=== PATIENT | male | born 1935 | race Caucasian/White ===

== ENCOUNTER → 2016-07-08 | Outpatient (CLI) | payer MEDICARE, OTHER ==
[~2016-07-08] MED LIST: AMLO10TA PO; AMLO10TA2 PO; ASP81TEC PO; ASPI-983 PO; ASPI325T32 PO; ASPRIN; ATOR80TA2 PO; ATOR80TA76 PO; AZIT500T PO; AZIT500T2 PO; BUME1TAB4 PO; CEFD300C PO; CLOP75TA PO; CRESTOR40 MG PO; DIPY25TA; FISH1CAP7 PO; FLC1T PO; FOLI0.4T2 PO; FURO40TA4 PO; GLIP5TAB13 PO; IRBE300T9 PO; ISM60TCR PO; ISORBIDE; LOSA50TA36 PO; LOSA50TA6 PO; METO-333 PO; METO100T2 PO; METO25TA2 PO; NF-NI250ER PO; NITR0.4T PO; NITR0.4T SL; OMEG-59 PO; OMEG1CAP24 PO; PHEN-633 PO; PHEN100C11 PO; PHEN100C4 PO; PHN100C; PHN100C PO
--- NOTE | 2016-07-08 16:24 | Diagnostic Imaging Report ---
PROCEDURE: MRI right joint lower extremity without contrast. TECHNIQUE: Multiplanar, multisequence non contrast-enhanced MRI of the right lower extremity was accomplished. INDICATION: Medial knee pain. There are no previous MRI examinations available for comparison. FINDINGS: The plain film examination of the right knee performed on 11/22/15 failed to show any sign of an acute abnormality. There was degenerative disease involving the medial compartment and the patellofemoral space. On the proton dense sagittal series of this exam, there is a sizable defect involving the midportion of the medial meniscus. Most likely, the medial meniscus has been torn and has partially degenerated. Only a small amount of the anterior and posterior horns of the medial meniscus is still remaining. The injury to the medial meniscus has lead to advanced degenerative disease involving the medial compartment of the knee joint. Specifically, there is erosion and irregularity of the articular cartilage of the medial femoral condyle and to a lesser extent of the articular surface of the medial aspect of the proximal tibia. Furthermore on the coronal T2 series, there is diffusely increased signal throughout the medial femoral condyle and the medial aspect of the proximal tibia. This abnormal signal does suggest bone edema and may be related to repetitive trauma. However, there is also a suggestion of a nondisplaced fracture extending obliquely from the articular surface of the medial aspect of the proximal tibia to the medial cortex. The medial collateral ligament is also somewhat indistinct and most likely partially torn. There is no abnormal signal arising from the medial meniscus is suggested articular surface tear. There is some increased signal within the substance of the anterior and posterior horns of the lateral meniscus. This may be related to mucoid degeneration or less likely an intrasubstance tear. The anterior and posterior cruciate ligaments, the quadriceps and infrapatellar tendons, the fibular collateral ligament, the biceps femoris tendon and the iliotibial band are intact. There is no sign of a tear of either the medial or lateral retinaculum. 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 There is a moderate joint effusion present. There may be a few small loose bodies within the joint fluid as well. There is also a sizable 2.9 x 5.8 cm Shannon's cyst. IMPRESSION: 1. The medial meniscus has been torn and has partially degenerated. The injury to the medial meniscus has led to advanced degenerative disease involving the medial compartment of the knee joint. In addition, there may be a nondisplaced fracture of the medial aspect of the proximal tibia. The indistinct appearance of the medial collateral ligament also suggests that the MCL is partially torn. 2. The lateral meniscus and the other major ligaments and tendons are intact. 3. 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 4. There is a small joint effusion and a sizable Shannon's cyst. Dictated by: Dictated on workstation # [id number]
== END ==
LOC: RAD 14:58
PROVIDERS: ATTEND Orthopaedic Surgery
DX: M23.8X1 Other internal derangements of right knee (principal); M25.461 Effusion, right knee; M71.21 Synovial cyst of popliteal space [Baker], right knee; M17.12 Unilateral primary osteoarthritis, left knee
CPT/HCPCS: 73721

== ENCOUNTER 2016-10-08 11:28 | Outpatient (RCR) | payer MEDICARE, OTHER | END 2016-10-08 13:58 | disposition home or self-care (01) | PROVIDERS: ATTEND Orthopaedic Surgery | DX: M17.11 Unilateral primary osteoarthritis, right knee (principal) ==

== ENCOUNTER 2016-10-28 04:46 | Inpatient (IN) | payer MEDICARE, OTHER ==
[2016-10-28] VITALS (18 sets, daily range): BP systolic 106–170; BP diastolic 44–95
[~2016-10-28] VITALS: Ht 182.9 cm; Wt 92.1 kg
[2016-10-28] MEDS ORDERED: LORazepam INJ 2 MG/ML (ATIVAN) VIAL ONE (04:56)
[2016-10-28] MEDS ORDERED: PHENYTOIN 250 MG/5 ML INJ (DILANTIN) VIAL IV ONE (05:00)
[2016-10-28] MEDS ORDERED: LORazepam INJ 2 MG/ML (ATIVAN) VIAL IVP ONE ×2 (05:00→05:45)
[2016-10-28 05:09] LABS: BASOPHILS # (AUTO) 0.1 10^3/uL (0.0-0.1); BASOPHILS % (AUTO) 1 % (0-10); EOSINOPHILS # (AUTO) 0.1 10^3/uL (0.0-0.3); EOSINOPHILS % (AUTO) 1 % (0-10); LYMPHOCYTES # (AUTO) 1.8 X 10^3 (1.0-4.0); LYMPHOCYTES % (AUTO) 13 % (12-44); MEAN CORPUSCULAR HEMOGLOBIN 30 PG (25-34); MEAN CORPUSCULAR HGB CONC 32 G/DL (32-36); MEAN CORPUSCULAR VOLUME 93 FL (80-99); MEAN PLATELET VOLUME 10.9 FL (7.4-10.4); MONOCYTES # (AUTO) 0.8 X 10^3 (0.0-1.0); MONOCYTES % (AUTO) 6 % (0-12); NEUTROPHILS # (AUTO) 11.2 X 10^3 (1.8-7.8); NEUTROPHILS % (AUTO) 80 % (42-75); PLATELET COUNT 171 10^3/uL (130-400); RED BLOOD COUNT 4.24 10^6/uL (4.35-5.85); RED CELL DISTRIBUTION WIDTH 13.8 % (10.0-14.5)
[2016-10-28 05:10] LABS: WHITE BLOOD COUNT 13.9 10^3/uL (4.3-11.0)
[2016-10-28 05:20] LABS: PROTHROMBIN TIME PATIENT 13.6 SEC (12.2-14.7)
[2016-10-28 05:31] LABS: ALANINE AMINOTRANSFERASE 24 U/L (0-55); ALBUMIN 4.1 GM/DL (3.2-4.5); ALCOHOL < 10 MG/DL (<10); ANION GAP 19 MMOL/L (5-14); ASPARTATE AMINO TRANSFERASE 22 U/L (5-34); BILIRUBIN,TOTAL 0.6 MG/DL (0.1-1.0); BLOOD UREA NITROGEN 21 MG/DL (7-18); BUN/CREATININE RATIO 16; CALCIUM 9.3 MG/DL (8.5-10.1); CARBON DIOXIDE 15 MMOL/L (21-32); CHLORIDE 103 MMOL/L (98-107); CREATINE KINASE 63 U/L (30-200); CREATININE SERUM 1.32 MG/DL (0.60-1.30); GFR ESTIMATED 52; GLUCOSE 242 MG/DL (70-105); POTASSIUM 4.5 MMOL/L (3.6-5.0); SODIUM 137 MMOL/L (135-145); TOTAL PROTEIN 7.4 GM/DL (6.4-8.2)
--- NOTE | 2016-10-28 05:43 | ED Neurological Problem ---
General Chief Complaint: Neurological Problems Stated Complaint: SEIZURES Source: EMS, spouse History of Present Illness Time seen by provider: 04:50 Initial Comments PT ARRIVES VIA EMS FROM HOME PT HAS HAD 2 SEIZURES TONIGHT, EACH LASTING 14 MINUTES, PER FIRST SEIZURE WAS IN HIS SLEEP, AND CALLED EMS. PT WAS VERY UNCOOPERATIVE AND REFUSED TRANSPORT AND JUMPED OFF EMS CART. PT WAS ACTING NORMAL AFTER THAT, ACCORDING TO APPROXIMATELY 30-40 MINUTES LATER, HE HAD A SECOND SEIZURE. SO CALLED EMS AGAIN AND EMS BROUGHT PT HERE, HE IS STILL POST-ICTAL AND ESSENTIALLY UNRESPONSIVE. NO IV ACCESS ATTEMPTED BY EMS. BOTH SEIZURES OCCURRED WHILE PATIENT WAS LAYING IN BED AND NO INJURIES OCCURRED. REPORTS THAT PT ALWAYS ADAMANTLY REFUSES TO COME TO HOSPITAL, AND STATES HE WILL BE VERY UPSET/ANGRY ONCE HE WAKES UP AND DISCOVERS HE IS HERE. PT HAD A SEIZURE 11 YEARS AGO, AND AT THE TIME WAS FOUND TO HAVE CAD AND SUBSEQUENTLY HAD 5 VESSEL CABG WAS FELT THAT SEIZURE WAS BROUGHT ON BY CARDIAC PROBLEMS, BUT WAS KEPT ON DILANTIN SINCE THAT TIME HE WAS SEEN BY A NEUROLOGIST AT IN [place] ( HAS NOT SEEN NEUROLOGIST IN 11 YEARS--SAW NEUROLOGIST VERY BRIEFLY AFTER HIS FIRST SEIZURE, AND THEN HAD NOT SEEN ONE AGAIN UNTIL [place], AND WAS ONLY 1 VISIT) , AND HE THOUGHT DILANTIN COULD BE STOPPED PT HAD NOT HAD ANY FURTHER SEIZURES. ADDITIONALLY, PT WAS STARTED ON TRAMADOL 3 MONTHS AGO FOR CHRONIC RIGHT KNEE PAIN, AND WAS TOLD THAT IT MAY CAUSE SEIZURES. PCP: DR. LAWLER AIRCRAFT TOOL MAKER: DR. HAIR Allergies and Home Medications Allergies Coded Allergies: Penicillins (Unverified Allergy, Unknown, 12/25/14) Home Medications Amlodipine Besylate 10 Mg Tablet, 10 MG PO DAILY, (Reported) Aspirin 325 Mg Tablet., 325 MG PO DAILY, (Reported) Atorvastatin Calcium 80 Mg Tablet, 80 MG PO HS, (Reported) Bumetanide 1 Mg Tablet, 2 MG PO BIDAC, #90 Ref 11 Prescribed by: JAVIER TAYLOR on 05/11/15 0952 Glipizide 5 Mg Tablet, 5 MG PO DAILY, (Reported) Isosorbide Mononitrate 60 Mg Tab, 60 MG PO DAILY, (Reported) Losartan Potassium 50 Mg Tablet, 50 MG PO DAILY @ 1200, (Reported) Metoprolol Tartrate 100 Mg Tablet, 100 MG PO BID, (Reported) Nitroglycerin 0.4 Mg Tab.subl, 0.4 MG SL UD PRN for CHEST PAIN, (Reported) Constitutional: other (UNABLE TO OBTAIN FROM PT. DENIES ANY RECENT ILLNESS. ) Past Dwaiufl-Xtlgdo-Pqrxte Hx Patient Social History Alcohol Use: Occasionally Uses (HISTORY OF VERY HEAVY USE IN 30'S AND 40'S, NOW ONLY "OCCASIONAL" USE) Recreational Drug Use: No Smoking Status: Former Smoker (QUIT AGE 28) Recent Foreign Travel: No Contact w/Someone Who Travel: No Recent Hopitalizations: Yes (200, DIVERTICULITIS ABOUT 20 YEARS AGO) Physical Abuse: No Sexual Abuse: No Mistreated: No Fear: No Immunizations Up To Date Tetanus Booster (TDap): More than 5yrs PED Vaccines UTD: Yes Date of Pneumonia Vaccine: Apr 28, 2014 Date of Influenza Vaccine: Oct 24, 2014 Seasonal Allergies Seasonal Allergies: No Surgeries History of Surgeries: Yes (5 vessel CABG, short term dialysis; TRANSVENOUS MITRAL VALVE REPLACEMENT) Surgeries: Cardiac, CABG, Dialysis, Valve Replacement Respiratory History of Respiratory Disorde: Yes (CHF) Currently Using CPAP: No Currently Using BIPAP: No Cardiovascular History of Cardiac Disorders: Yes (MURMUR, bypass x5, blockages without intervention, CHF; TRANSVENOUS MITRAL VALVE REPLACEMENT) Cardiac Disorders: Chronic Edema/Swelling, Coronary Artery Disease, High Cholesterol, Hypertension, Valvular Heart Disease Neurological History of Neurological Disord: Yes (SEIZURE IN 2006 PRIOR TO CABG) Neurological Disorders: Seizure Disorder, Stroke, TIA Reproductive System Hx Reproductive Disorders: No Sexually Transmitted Disease: No HIV/AIDS: No Genitourinary History of Genitourinary Disor: Yes (SHORT TERM DIALYSIS) Genitourinary Disorders: Renal Failure, Dialysis Gastrointestinal History of Gastrointestinal Di: Yes Gastrointestinal Disorders: Hemorrhoids, Polyps Musculoskeletal History of Musculoskeletal Dis: Yes (CHRONIC RIGHT KNEE PAIN ) Musculoskeletal Disorders: Arthritis Endocrine History of Endocrine Disorders: Yes Endocrine Disorders: Diabetes, Non-Insulin dep HEENT History of HEENT Disorders: Yes HEENT Disorders: Cataract Loss of Vision: Denies Hearing Impairment: Hard of Hearing Cancer History of Cancer: No Psychosocial History of Psychiatric Problem: No Suicide Risk Score: 0 Integumentary History of Skin or Integumenta: No Blood Transfusions History of Blood Disorders: No Adverse Reaction to a Blood Tr: No Family Medical History Significant Family History: No Pertinent Family Hx Family Medial History: Cardiovascular disease 19 MOTHER Cervical cancer Diabetes mellitus 19 FATHER Physical Exam Vital Signs Vital Sign - Last 12Hours 10/28/16 10/28/16 04:46 04:50 Temp 98.7 Pulse 77 Resp 16 B/P (MAP) 168/59 Pulse Ox 92 O2 Delivery Room Air O2 Flow Rate 2.00 Capillary Refill : General Appearance: other (PT IS POST ICTAL, UNRESPONSIVE WITH SNOROUS BREATHING. DOES BECOME SOMEWHAT AGITATED AT TIMES, BUT DOES NOT OPEN EYES, VERBALIZE OR FOLLOW ANY COMMANDS, BUT DOES WITHDRAW FROM PAIN ) HEENT: other (PUPILS EQUAL) Respiratory: No rales, No rhonchi, No wheezing, other (SNOROUS BREATHING) Cardiovascular: regular rate, rhythm, no edema, no JVD, systolic murmur (04/28) Gastrointestinal: soft Neurologic/Psychiatric: other (UNRESPONSIVE WITH SNOROUS BREATHING BUT DOES WITHDRAW FROM PAIN) Skin: normal color, warm/dry Progress/Results/Core Measures Results/Orders Lab Results Laboratory Tests Test 10/28/16 04:55 Range/Units White Blood Count 13.9 H 4.3-11.0 10^3/uL Red Blood Count 4.24 L 4.35-5.85 10^6/uL Hemoglobin 12.6 L 13.3-17.7 G/DL Hematocrit 39 L 40-54 % Mean Corpuscular Volume 93 80-99 FL Mean Corpuscular Hemoglobin 30 25-34 PG Mean Corpuscular Hemoglobin Concent 32 32-36 G/DL Red Cell Distribution Width 13.8 10.0-14.5 % Platelet Count 171 130-400 10^3/uL Mean Platelet Volume 10.9 H 7.4-10.4 FL Neutrophils (%) (Auto) 80 H 42-75 % Lymphocytes (%) (Auto) 13 12-44 % Monocytes (%) (Auto) 6 0-12 % Eosinophils (%) (Auto) 1 0-10 % Basophils (%) (Auto) 1 0-10 % Neutrophils # (Auto) 11.2 H 1.8-7.8 X 10^3 Lymphocytes # (Auto) 1.8 1.0-4.0 X 10^3 Monocytes # (Auto) 0.8 0.0-1.0 X 10^3 Eosinophils # (Auto) 0.1 0.0-0.3 10^3/uL Basophils # (Auto) 0.1 0.0-0.1 10^3/uL Prothrombin Time 13.6 12.2-14.7 SEC INR Comment 1.0 0.8-1.4 Activated Partial Thromboplast Time 34 24-35 SEC Sodium Level 137 135-145 MMOL/L Potassium Level 4.5 3.6-5.0 MMOL/L Chloride Level 103 98-107 MMOL/L Carbon Dioxide Level 15 L 21-32 MMOL/L Anion Gap 19 H 5-14 MMOL/L Blood Urea Nitrogen 21 H 7-18 MG/DL Creatinine 1.32 H 0.60-1.30 MG/DL Estimat Glomerular Filtration Rate 52 BUN/Creatinine Ratio 16 Glucose Level 242 H 70-105 MG/DL Calcium Level 9.3 8.5-10.1 MG/DL Magnesium Level 2.0 1.8-2.4 MG/DL Total Bilirubin 0.6 0.1-1.0 MG/DL Aspartate Amino Transf (AST/SGOT) 22 5-34 U/L Alanine Aminotransferase (ALT/SGPT) 24 0-55 U/L Alkaline Phosphatase 83 40-136 U/L Total Creatine Kinase 63 30-200 U/L Creatine Kinase MB 2.3 <6.6 NG/ML Troponin I < 0.30 <0.30 NG/ML Total Protein 7.4 6.4-8.2 GM/DL Albumin 4.1 3.2-4.5 GM/DL TSH Walker Testing 2.08 0.35-4.94 UIU/ML Serum Alcohol < 10 <10 MG/DL My Orders Orders - ALISHA JIMÉNEZ DO Lorazepam Injection (Ativan Injection) (10/28/16 05:00) Phenytoin Injection (Dilantin Injection) (10/28/16 05:00) Saline Lock/Iv-Start (10/28/16 04:58) Ekg Tracing (10/28/16 04:58) O2 (10/28/16 04:58) Monitor-Rhythm Ecg Trace Only (10/28/16 04:58) Alcohol (10/28/16 04:58) Cbc With Automated Diff (10/28/16 04:58) Comprehensive Metabolic Panel (10/28/16 04:58) Creatine Kinase (10/28/16 04:58) Creatine Kinase Mb (10/28/16 04:58) Magnesium (10/28/16 04:58) Protime With Inr (10/28/16 04:58) Partial Thromboplastin Time (10/28/16 04:58) Thyroid Analyzer (10/28/16 04:58) Troponin I (10/28/16 04:58) Chest 1 View, Ap/Pa Only (10/28/16 04:58) Lorazepam Injection (Ativan Injection) (10/28/16 04:56) Lorazepam Injection (Ativan Injection) (10/28/16 05:45) Ct Head Wo-R/O Stroke (10/28/16 05:59) Medications Given in ED Current Medications Medications Dose Ordered Sig/Chano Route Start Time Stop Time Status Last Admin Dose Admin Lorazepam 2 mg ONCE ONCE IVP 10/28/16 05:00 10/28/16 05:03 DC 10/28/16 05:05 2 MG Lorazepam 2 mg ONCE ONCE IVP 10/28/16 05:45 10/28/16 05:46 DC 10/28/16 05:36 2 MG Phenytoin Sodium 1,000 mg ONCE ONCE IV 10/28/16 05:00 10/28/16 05:03 DC 10/28/16 05:20 1,000 MG Vital Signs/I&O Vital Sign - Last 12Hours 10/28/16 10/28/16 04:46 04:50 Temp 98.7 Pulse 77 Resp 16 B/P (MAP) 168/59 Pulse Ox 92 92 O2 Delivery Room Air Nasal Cannula O2 Flow Rate 2.00 Progress Note : Progress Note PT SOMEWHAT AGITATED ON ARRIVAL, GIVEN ATIVAN AND DILANTIN BOLUS ON ARRIVAL VITALS STABLE AND O2 SATS IN MID TO UPPER 90'S ON ROOM AIR NO DETERIORATION IN PT'S CONDITION, BUT REMAINED UNRESPONSIVE FOR REMAINDER OF ER STAY ECG Initial ECG Impression Time: 04:57 Initial ECG Rate: 72 Initial ECG Rhythm: Normal Sinus Initial ECG Impression: Normal Diagnostic Imaging Comments CXR--NO ACUTE PROCESS, POOR INSPIRATION--PENDING RADIOLOGIST REVIEW CT HEAD--NO ACUTE PROCESS, PER [facility] RADIOLOGIST VIA PHONE AT 0627 Reviewed: Reviewed by Me, Discussed w/Radiologist Departure Communication (Admissions) Progress Notes 626--SPOKE WITH DR. LAWLER, ACCEPTS PT FOR ADMIT. Impression Impression: Primary Impression: MULTIPLE SEIZURES Additional Impressions: Hx of seizure disorder PROLONGED POST ICTAL STATE NIDDM Chronic renal insufficiency HX OF CAD WITH CABG Hx of mitral valve replacement Disposition: ADMITTED INPATIENT Condition: Stable/Unchanged Admissions Decision to Admit Reason: Admit from ER (General) Decision to Admit/Date: Oct 28, 2016 Time/Decision to Admit Time: 06:30 Departure-Patient Inst. Referrals: DALIA LAWLER DO (PCP) Primary Care Physician ALISHA JIMÉNEZ DO Oct 28, 2016 05:43
[2016-10-28 05:51] LABS: TROPONIN I < 0.30 NG/ML (<0.30)
--- NOTE | 2016-10-28 06:39 | Diagnostic Imaging Report ---
INDICATION: Vertigo with left upper extremity and facial paresthesia Comparison is made to study dated 07/24/2009. Multiple contiguous axial CT images of the head are obtained. Ventricles and sulci are prominent. There is no evidence of hemorrhage. No territorial low density is seen. There is mild atherosclerotic calcification within distal internal carotid and vertebral arteries. There is no abnormal mass effect or shift of midline structures. IMPRESSION: Probable senescent findings in the brain without CT evidence of acute intracranial abnormality or adverse change. Dictated by: Dictated on workstation # [id number]
--- OUTSIDE RECORDS SUMMARY | 2016-10-28 06:48 | XMS REPORT | Encounter Summary ---
Author Author [facility] Organization [facility] Address Unknown Phone Unavailable Care Team Providers Care Story Reader Name Role Phone PCP Unavailable Reason for Visit * Reason Comments Referral waiting for ortho OV Encounter Details Date Type Department Care Team Description 10/07/2016 Telephone [facility] Cardiology Lydia Alexandre, machine tracer (waiting for [address] [place] ortho OV) [facility] [address] [place] [address] Social History Tobacco Use Types Packs/Day Years Used Date Former Smoker Cigarettes Quit: 02/23/1961 Alcohol Use Drinks/Week oz/Week Comments No 0 Standard 0.0 drinks or equivalent Sex Assigned at Date Recorded Not on file as of this encounter Functional Status Functional Status Response Date of Assessment Does the patient have a hearing impairment: Yes 06/28/2015 as of this encounter Plan of Treatment Not on fileas of this encounter Visit Diagnoses Not on filein this encounter
--- OUTSIDE RECORDS SUMMARY | 2016-10-28 06:48 | XMS REPORT | Encounter Summary ---
Author Author [facility] Organization [facility] Address Unknown Phone Unavailable Care Team Providers Care Insurance Inspector Name Role Phone PCP Unavailable Encounter Details Date Type Department Care Team Description 09/29/2016 Ancillary Rad Outpatient, Radiologist Diagnosis unknown Orders [address] [place] [address] Social History Tobacco Use Types Packs/Day Years [...] Treatment Not on fileas of this encounter Results * MRI LOWER EXT EXTERNAL IMAGING (07/08/2016) Narrative This order has been auto finalized and does not contain a result. in this encounter Visit Diagnoses Diagnosis Diagnosis unknown Other unknown and unspecified cause of morbidity or mortality in this encounter
--- OUTSIDE RECORDS SUMMARY | 2016-10-28 06:48 | XMS REPORT | Clinical Summary ---
Author Author [facility] Organization [facility] Address Unknown Phone Unavailable Care Team Providers Care Watch Supervisor Name Role Phone PCP Unavailable Source Comments Some departments are not documenting in the electronic medical record. If you do not see the information that you expected, contact Release of Information in the Health Information Management department at [phone] for further assistance in locating additional records.[facility] Allergies Active Allergy Reactions Severity Noted Date Comments Lisinopril COUGH Low 06/04/2015 Penicillins SEE COMMENTS Low 06/04/2015 Unsure of reaction Current Medications Prescription Sig. Disp. Refills Start End Date Status Date atorvastatin (LIPITOR) 40 Take 80 mg by mouth Active mg tablet daily. nitroglycerin (NITROSTAT) Place 0.4 mg under tongue Active 0.4 mg tablet every 5 minutes as needed for Chest Pain. glipiZIDE (GLUCOTROL) 5 Take 5 mg by mouth twice Active mg tablet daily with meals. losartan (COZAAR) 50 mg Take 50 mg by mouth Active tablet daily. phenytoin SR (DILANTIN) Take 400 mg by mouth at Active 100 mg capsule bedtime daily. senna/docusate Take 2 Tabs by mouth 06/20/19 Active (SENOKOT-S) 8.6/50 mg daily as needed. For 16 tablet constipation psyllium (METAMUCIL) 3.4 Take 1 Packet by mouth Active gram packet daily as needed. metoprolol (LOPRESSOR) 50 Take 1 Tab by mouth twice 180 Tab 3 Active mg tablet daily. 16 aspirin EC 81 mg tablet Take 81 mg by mouth Active daily. Active Problems Problem Noted Date Postoperative anemia due to acute blood loss 06/28/2015 Hypertensive emergency 06/20/2015 Flash pulmonary edema (HCC) 06/20/2015 Acute respiratory failure (HCC) 06/20/2015 Hx of aortic valve repair 06/04/2015 Overview: 09/29/2005-CABG x 5 and Aortic Valve Repair History of acute renal failure 06/04/2015 Overview: History of ARF requiring dialysis, improved. Seizure (HCC) 06/04/2015 Overview: Approximately 10 years ago-Currently on Dilantin. Aortic stenosis, severe 05/11/2015 Overview: 03/26/15-Echo ([facility]): EF 65%. Enlarged left atrium. Moderate concentric LVH. Moderate diastolic dysfunction. Moderate to severe aortic stenosis. Aortic Valve mean gradient is 41 mmHg. Moderate aortic insufficiency. Pleural effusion present. Severe pulmonary HTN. RSVP is 58 mmHg. Dyspnea on exertion Coronary artery disease Overview: 11/22/14-Cath ([facility]): EF 60%. Occlusion of three vein grafts to the second OMB, RPDA and MRCA. Patent vein graft to the first OMB giving collateral to the DRCA. Patent TRAYLOR to the LAD. Extensive [place] CAD. Moderate aortic valve stenosis with peak gradient of 60 mmHg. S/P CABG x 5 Overview: 09/29/2005-CABG x 5 and Aortic Valve Repair Chronic diastolic heart failure (HCC) Overview: Admitted to [facility] in [place] for CHF. BNP >3000. Type II diabetes mellitus (HCC) Chronic renal impairment, stage 2 (mild) Carotid artery stenosis Hypertension, essential Hyperlipidemia Paroxysmal a-fib (HCC) Overview: Per and records, pt has refused anticoagulation in past. History of CVA (cerebrovascular accident) Overview: Per and records, pt has refused anticoagulation in past. Left atrial dilatation Pulmonary hypertension (HCC) Left ventricular hypertrophy Acute on chronic diastolic CHF (congestive heart failure), NYHA class 3 (HCC) Encounters Date Type Specialty Care Team Description 10/07/2016 Telephone Cardiology Lydia Alexandre RN Referral (waiting for ortho OV) 09/29/2016 Ancillary Radiology Outpatient, Radiologist Diagnosis unknown Orders 09/23/2016 Telephone Cardiology Naomie Subramanian RN Referral ([facility] - knee) from Last 3 Months Family History Medical History Relation Name Comments Diabetes Father Cancer Mother Cervical Cancer Mother Heart Disease Mother Diabetes Paternal Grandfather Relation Name Status Comments Father Mother Paternal Grandfather Social History Tobacco Use Types Packs/Day Years Used Date Former Smoker Cigarettes Quit: 02/23/1961 Alcohol Use Drinks/Week oz/Week Comments No 0 Standard 0.0 drinks or equivalent Sex Assigned at Date Recorded Not on file Last Filed Vital Signs Vital Sign Reading Time Taken Blood Pressure 135/74 05/22/2016 1:06 PM CDT Pulse 65 05/22/2016 1:06 PM CDT Temperature 36.7 C (98.1 F) 06/30/2015 11:02 AM CDT Respiratory Rate - - Oxygen Saturation 96% 08/07/2015 1:53 PM CDT Inhaled Oxygen - - Concentration Weight 78.9 kg (174 lb) 05/22/2016 1:06 PM CDT Height 182.9 cm (6') 05/22/2016 1:06 PM CDT Body Mass Index 23.6 05/22/2016 1:06 PM CDT Plan of Treatment Health Maintenance Due Date Last Done Comments PHYSICAL (COMPREHENSIVE) 1942 EXAM PERTUSSIS VACCINE 1946 TETANUS VACCINE 1952 DILATED EYE EXAM 1953 FOOT EXAM 1953 HBA1C 1953 MICROALBUMIN 1953 SHINGLES VACCINE 1995 PREVNAR/PNEUMOVAX (#1) 2000 INFLUENZA VACCINE 10/24/2016 Implants Implanted Type Area Open Tenter Operator Device Expiration Model / Identifier Date Serial / Lot Evolutr Core Valve 29mm N/A: Heart UNIDENTIFIED 04/08/2017 [id number] Implanted: Qty: 1 on 06/28/2015 by MANOHARG S / Mely, Jensen Chowdary MD [id number] / [id number] - Results Not on filefrom Last 3 Months
--- OUTSIDE RECORDS SUMMARY | 2016-10-28 06:48 | XMS REPORT | Continuity of Care Document ---
Author Author [facility] Organization [facility] Address Unknown Phone Unavailable Care Team Providers Care Cable Wirer Name Role Phone [employer] Unavailable Unavailable Problems Medications Allergies, Adverse Reactions, Alerts Immunizations Results Vital Signs Encounters Procedures Plan of Care Social History Assessment and Plan Family History Value Date Source Advance Directives Order Name Results Value Date Source
--- OUTSIDE RECORDS SUMMARY | 2016-10-28 06:48 | XMS REPORT | Encounter Summary ---
Author Author [facility] Organization [facility] Address Unknown Phone Unavailable Care Team Providers Care Hull Outfit Supervisor Name Role Phone PCP Unavailable Reason for Referral * Consult, Test & Treat (Routine) Status Reason Specialty Diagnoses / Referred By Referred To Procedures Contact Contact New Request Specialty Orthopedic Surgery Diagnoses Jax Darden, Nirmal Knee pain, MD Required unspecified [address] unspecified [address] [place] [address] Reason for Visit * Reason Comments Referral [facility] - knee Encounter Details Date Type Department Care Team Description 09/23/2016 Telephone [facility] Cardiology Naomie Subramanian RN Referral ([facility] - [address] knee) [address] [place] [address] Social History Tobacco Use Types Packs/Day Years Used Date Former Smoker Cigarettes Quit: 02/23/1961 Alcohol Use Drinks/Week oz/Week Comments No 0 Standard 0.0 drinks or equivalent Sex Assigned at Date Recorded Not on file as of this encounter Functional Status Functional Status Response Date of Assessment Does the patient have a hearing impairment: Yes 06/28/2015 as of this encounter Plan of Treatment Name Priority Associated Diagnoses Order Schedule AMB REFERRAL TO ORTHOPEDICS Routine Knee pain, unspecified Ordered: 02/2016 chronicity, unspecified laterality as of this encounter Visit Diagnoses Diagnosis Knee pain, unspecified chronicity, unspecified laterality - Primary in this encounter
--- NOTE | 2016-10-28 07:41 | History & Physicial ---
History of Present Illness History of Present Illness Reason for visit/HPI seizures. Patient had 2 grand mal seizures. Patient had a seizure while sleeping in bed Called EMS and they came out. Patient refused to go to the emergency room at that time area patient had a 14 minutes seizure. 30-40 minutes later patient had a second seizure. 14 minutes and was brought to the hospital by EMS. Patient nonresponsive. CAT scan of the head negative. Patient had been on Dilantin 100 mg 4 capsules daily for 11 years. Patient seen at [facility] by neurologist tests in April and taken off of Dilantin. Patient 3 months ago put on tramadol. Patient and family new that decreases threshold for seizure. Patient in ICU now and moving around nonresponsive. History went over with Date of Admission Oct 28, 2016 at 06:30 Time Seen by Provider: 07:35 I consulted on this patient on 10/28/16 07:35 Attending Physician Derek Lawler DO Admitting Physician Derek Lawler DO Consult Allergies and Home Medications Allergies Coded Allergies: Penicillins (Unverified Allergy, Unknown, 12/25/14) Home Medications Amlodipine Besylate 10 Mg Tablet, 10 MG PO DAILY, (Reported) Aspirin 325 Mg Tablet.dr, 325 MG PO DAILY, (Reported) Atorvastatin Calcium 80 Mg Tablet, 80 MG PO HS, (Reported) Bumetanide 1 Mg Tablet, 2 MG PO BIDAC, #90 Ref 11 Prescribed by: JAVIER TAYLOR on 05/11/15 0952 Glipizide 5 Mg Tablet, 5 MG PO DAILY, (Reported) Isosorbide Mononitrate 60 Mg Tab, 60 MG PO DAILY, (Reported) Losartan Potassium 50 Mg Tablet, 50 MG PO DAILY @ 1200, (Reported) Metoprolol Tartrate 100 Mg Tablet, 100 MG PO BID, (Reported) Nitroglycerin 0.4 Mg Tab.subl, 0.4 MG SL UD PRN for CHEST PAIN, (Reported) Past Hvuziws-Zexdqa-Ugmyjm Hx Patient Social History Marrital Status: Employed/Student: unemployed Alcohol Use: Occasionally Uses (HISTORY OF VERY HEAVY USE IN 30'S AND 40'S, NOW ONLY "OCCASIONAL" USE) Recreational Drug Use: No Smoking Status: Former Smoker (QUIT AGE 28) Recent Foreign Travel: No Contact w/other who traveled: No Recent Hopitalizations: Yes (200, DIVERTICULITIS ABOUT 20 YEARS AGO) Recent Infectious Disease Expo: No Immunizations Up To Date Tetanus Booster (TDap): More than 5yrs Pediatric: Yes Date of Pneumonia Vaccine: Apr 28, 2014 Date of Influenza Vaccine: Oct 24, 2014 Seasonal Allergies Seasonal Allergies: No Surgeries Yes (5 vessel CABG, short term dialysis; TRANSVENOUS MITRAL VALVE REPLACEMENT) Cardiac, CABG, Dialysis, Valve Replacement Respiratory Yes (CHF) Currently Using CPAP: No Currently Using BIPAP: No Cardiovascular Yes (MURMUR, bypass x5, blockages without intervention, CHF; TRANSVENOUS MITRAL VALVE REPLACEMENT) Chronic Edema/Swelling, Coronary Artery Disease, High Cholesterol, Hypertension , Valvular Heart Disease Neurological Yes (SEIZURE IN 2005 PRIOR TO CABG) Seizure Disorder, Stroke, TIA Reproductive System Hx Reproductive Disorders: No Sexually Transmitted Disease: No HIV/AIDS: No Genitourinary Yes (SHORT TERM DIALYSIS) Renal Failure, Dialysis Gastrointestinal Yes Hemorrhoids, Polyps Musculoskeletal Yes (CHRONIC RIGHT KNEE PAIN ) Arthritis Endocrine History of Endocrine Disorders: Yes Endocrine Disorders: Diabetes, Non-Insulin dep HEENT History of HEENT Disorders: Yes HEENT Disorders: Cataract Loss of Vision: Denies Hearing Impairment: Hard of Hearing Cancer No Psychosocial History of Psychiatric Problem: No Integumentary History of Skin or Integumenta: No Blood Transfusions History of Blood Disorders: No Adverse Reaction to a Blood Tr: No Family Medical History Significant Family History: No Pertinent Family Hx Family Hx: Cardiovascular disease 19 MOTHER Cervical cancer Diabetes mellitus 19 FATHER Constitutional: other (nonresponsive history by ) EENTM: no symptoms reported Respiratory: no symptoms reported Cardiovascular: other (Falvey replacement, coronary artery disease,) Gastrointestinal: no symptoms reported Genitourinary: no symptoms reported Physical Exam Vital Signs Vital Sign - Last 12Hours 10/28/16 10/28/16 04:46 04:50 Temp 98.7 Pulse 77 Resp 16 B/P (MAP) 168/59 Pulse Ox 92 O2 Delivery Room Air O2 Flow Rate 2.00 Capillary Refill : Less Than 3 Seconds General Appearance: No Apparent Distress, Other (nonresponsive and snoring) HEENT: Normal ENT Inspection Neck: Normal Inspection Respiratory: Lungs Clear, No Accessory Muscle Use, No Respiratory Distress Cardiovascular: Regular Rate, Rhythm Gastrointestinal: Non Tender, Soft Assessment/Plan Assessment and Plan seizure disorder. Postictal. Coronary artery disease. valve replacement.. mitral Diabetes Problems: DEREK LAWLER DO Oct 28, 2016 07:41
[2016-10-28] MEDS ORDERED: LORazepam INJ 2 MG/ML (ATIVAN) VIAL IVP PRN (07:45)
[2016-10-28] MEDS ORDERED: CATHETER FLUSH 10 ML SYR IV PRN (08:00)
--- NOTE | 2016-10-28 08:09 | Diagnostic Imaging Report ---
INDICATION: Seizure. Comparison made with prior examination 05/10/15 FINDINGS: There is cardiomegaly. There is some venous congestion. There is minimal bibasilar subsegmental atelectasis and/or pneumonitis. There is no pleural effusion or pneumothorax. Mediastinum is unremarkable. There has been previous median sternotomy and coronary bypass graft. IMPRESSION: Minimal bibasilar subsegmental atelectasis and/or pneumonitis. Cardiomegaly and mild central pulmonary venous congestion. Dictated by: Dictated on workstation # [id number]
[2016-10-28] MEDS ORDERED: METO50TA2 PO ×2 (10:21)
[2016-10-28] MEDS ORDERED: BUME2TAB3 PO ×2 (10:22)
[2016-10-28] MEDS ORDERED: ASPI-983 PO ×2 (10:35)
[2016-10-28] MEDS: 1/2 NS IV SOLUTION 1,000 ML IV SCH ×2 (10:51→17:50)
[2016-10-28] MEDS: LORazepam INJ 2 MG/ML (ATIVAN) VIAL IVP PRN ×3 (10:52→16:20)
[2016-10-28] MEDS ORDERED: PATIENT MAY USE OWN MEDS, ALL MC SCH (11:00)
[2016-10-28] MEDS: inSUlin (REGULAR) HUMAN 1 UNIT/0.01 ML (CHARGE PER UNIT) SC SCH ×3 (11:53→23:49)
[2016-10-28] MEDS ORDERED: NITROGLYCERIN SUBLINGUAL 0.4 MG TAB (NITROSTAT) SL PRN (12:00)
[2016-10-28] MEDS ORDERED: TRAM50TA2 PO ×2 (12:24)
[2016-10-28] MEDS: PHENYTOIN IV SCH ×4 (12:49→20:47)
[2016-10-28] MEDS: SODIUM CHLORIDE IV SCH ×4 (12:49→20:47)
[2016-10-28] MEDS ORDERED: PHENYTOIN 250 MG/5 ML INJ (DILANTIN) VIAL IV SCH (13:00)
[2016-10-28] MEDS: BUMETANIDE 2 MG PO SCH (17:17)
[2016-10-28] MEDS: ENOXAPARIN 40 MG/0.4 ML (LOVENOX) SYR SC SCH (20:52)
[2016-10-28] MEDS: meTOprolol TARTRATE 50 MG (LOPRESSOR) TAB PO SCH (21:00)
[2016-10-28] MEDS: ATORVASTATIN 80 MG (LIPITOR) TABLET PO SCH (21:00)
[2016-10-28 21:24] LABS: BILIRUBIN,URINE NEGATIVE (NEGATIVE); KETONES,URINE NEGATIVE (NEGATIVE); LEUKOCYTE ESTERASE ,URINE NEGATIVE (NEGATIVE); NITRITE,URINE NEGATIVE (NEGATIVE); PH,URINE 7 (5-9); PROTEIN,URINE NEGATIVE (NEGATIVE); UROBILINOGEN,URINE NORMAL (NORMAL)
[2016-10-28 21:31] LABS: SQUAMOUS EPITHELIAL CELL,UR RARE /HPF
[2016-10-29] VITALS (23 sets, daily range): BP systolic 126–177; BP diastolic 45–84
[2016-10-29] MEDS: 1/2 NS IV SOLUTION 1,000 ML IV SCH ×2 (03:20→09:31)
[2016-10-29 04:59] LABS: ABG BASE EXCESS 2.6 MMOL/L (-2.5-2.5); ABG HCO3 27 MMOL/L (23-27); ABG OXYGEN SATURATION 99 % (94-100); ABG PCO2 40 MMHG (35-45); ABG PH 7.43 (7.37-7.43); ABG PO2 103 MMHG (79-93); ABG TCO2 27.7 MMOL/L (21.0-31.0)
[2016-10-29 05:03] LABS: ALLENS TEST YES-POS
[2016-10-29 05:04] LABS: PATIENT TEMP 98.9
[2016-10-29 05:07] LABS: BASOPHILS # (AUTO) 0.1 10^3/uL (0.0-0.1); BASOPHILS % (AUTO) 1 % (0-10); EOSINOPHILS # (AUTO) 0.1 10^3/uL (0.0-0.3); EOSINOPHILS % (AUTO) 1 % (0-10); LYMPHOCYTES # (AUTO) 1.3 X 10^3 (1.0-4.0); LYMPHOCYTES % (AUTO) 14 % (12-44); MEAN CORPUSCULAR HEMOGLOBIN 30 PG (25-34); MEAN CORPUSCULAR HGB CONC 32 G/DL (32-36); MEAN CORPUSCULAR VOLUME 92 FL (80-99); MEAN PLATELET VOLUME 11.1 FL (7.4-10.4); MONOCYTES # (AUTO) 1.1 X 10^3 (0.0-1.0); MONOCYTES % (AUTO) 11 % (0-12); NEUTROPHILS # (AUTO) 7.1 X 10^3 (1.8-7.8); NEUTROPHILS % (AUTO) 74 % (42-75); PLATELET COUNT 117 10^3/uL (130-400); RED BLOOD COUNT 4.21 10^6/uL (4.35-5.85); WHITE BLOOD COUNT 9.6 10^3/uL (4.3-11.0)
[2016-10-29 05:26] LABS: ALANINE AMINOTRANSFERASE 20 U/L (0-55); ALBUMIN 3.6 GM/DL (3.2-4.5); ANION GAP 12 MMOL/L (5-14); ASPARTATE AMINO TRANSFERASE 23 U/L (5-34); BILIRUBIN,TOTAL 1.1 MG/DL (0.1-1.0); BLOOD UREA NITROGEN 15 MG/DL (7-18); BUN/CREATININE RATIO 14; CALCIUM 8.8 MG/DL (8.5-10.1); CARBON DIOXIDE 23 MMOL/L (21-32); CHLORIDE 102 MMOL/L (98-107); CREATININE SERUM 1.09 MG/DL (0.60-1.30); GFR ESTIMATED > 60; GLUCOSE 169 MG/DL (70-105); POTASSIUM 4.1 MMOL/L (3.6-5.0); SODIUM 137 MMOL/L (135-145); TOTAL PROTEIN 6.5 GM/DL (6.4-8.2)
[2016-10-29] MEDS: inSUlin (REGULAR) HUMAN 1 UNIT/0.01 ML (CHARGE PER UNIT) SC SCH ×3 (06:23→18:00)
[2016-10-29] MEDS: glipiZIDE 5 MG (GLUCOTROL) TAB PO SCH (06:24)
[2016-10-29] MEDS: BUMETANIDE 2 MG PO SCH ×2 (06:24→17:00)
--- NOTE | 2016-10-29 07:39 | Progress Note (SOAP) ---
Subjective Time Seen by Provider: 07:24 Subjective/Events-last exam multiple seizures. Dilantin level XXVI toxic. states that when patient takes Dilantin become sleepy. Patient lethargic today. To monitor patient today. Patient resting comfortably and not communicating this morning but moving all extremities Objective Exam Vital Signs Date Time Temp Pulse Resp B/P (MAP) Pulse Ox O2 Delivery O2 Flow Rate FiO2 10/29/16 06:00 65 8 154/82 96 Room Air 10/29/16 05:00 63 26 138/71 96 Room Air 10/29/16 04:00 99.1 64 12 140/65 97 Room Air 10/29/16 04:00 93 Room Air 10/29/16 03:00 65 20 136/56 90 Room Air 10/29/16 02:00 65 24 126/47 95 Room Air 10/29/16 01:00 67 25 127/50 93 Room Air 10/29/16 01:00 67 10/29/16 00:00 98.9 65 26 133/49 92 Room Air 10/29/16 00:00 96 Room Air 10/28/16 23:34 98.9 10/28/16 23:00 67 19 116/44 90 Room Air 10/28/16 22:00 67 27 106/69 95 Room Air 10/28/16 21:00 63 12 136/57 96 Room Air 10/28/16 20:00 96 Room Air 10/28/16 20:00 98.8 64 25 140/62 90 Room Air 10/28/16 19:00 60 10/28/16 19:00 60 17 148/58 90 Room Air 10/28/16 18:00 64 17 149/58 98 Nasal Cannula 2.00 10/28/16 17:00 63 27 150/59 98 Nasal Cannula 2.00 10/28/16 16:00 62 16 157/60 93 Nasal Cannula 2.00 10/28/16 16:00 96 Room Air 2.00 10/28/16 15:00 61 19 170/62 96 Nasal Cannula 2.00 10/28/16 14:00 0 19 149/67 97 Nasal Cannula 2.00 10/28/16 13:00 61 10/28/16 13:00 58 19 150/57 99 Nasal Cannula 2.00 10/28/16 12:00 98.9 63 21 140/77 94 Room Air 10/28/16 12:00 95 Room Air 0.00 10/28/16 11:00 66 18 165/65 95 Room Air 10/28/16 10:00 64 14 161/60 93 Room Air 10/28/16 09:00 70 25 155/64 93 Room Air 10/28/16 08:55 Nasal Cannula 2.00 10/28/16 08:28 98 Nasal Cannula 2.00 10/28/16 08:00 99.8 70 16 148/95 100 Room Air Capillary Refill : Less Than 3 Seconds General Appearance: No Apparent Distress, WD/WN HEENT: Normal ENT Inspection Neck: Normal Inspection Respiratory: Chest Non Tender, No Accessory Muscle Use, No Respiratory Distress Cardiovascular: Regular Rate, Rhythm, No Murmur Gastrointestinal: non tender, soft Results Lab Laboratory Tests 10/29/16 04:30 Laboratory Tests 10/28/16 09:06: Troponin I < 0.30 10/28/16 11:43: Glucometer 185H 10/28/16 17:33: Glucometer 129H 10/28/16 18:15: Urine Color YELLOW, Urine Clarity CLEAR, Urine pH 7, Urine Specific [place] 1.010L, Urine Protein NEGATIVE, Urine Glucose (UA) NEGATIVE, Urine Ketones NEGATIVE, Urine Nitrite NEGATIVE, Urine Bilirubin NEGATIVE, Urine Urobilinogen NORMAL, Urine Leukocyte Esterase NEGATIVE, Urine RBC (Auto) 1+H, Urine RBC NONE , Urine WBC NONE, Urine Squamous Epithelial Cells RARE, Urine Crystals NONE, Urine Bacteria NONE, Urine Casts NONE, Urine Mucus NEGATIVE, Urine Culture Indicated NO 10/28/16 23:39: Glucometer 162H 10/29/16 04:30: White Blood Count 9.6, Red Blood Count 4.21L, Hemoglobin 12.5L, Hematocrit 39L, Mean Corpuscular Volume 92, Mean Corpuscular Hemoglobin 30, Mean Corpuscular Hemoglobin Concent 32, Red Cell Distribution Width 14.0, Platelet Count 117L, Mean Platelet Volume 11.1H, Neutrophils (%) (Auto) 74, Lymphocytes (%) (Auto) 14 , Monocytes (%) (Auto) 11, Eosinophils (%) (Auto) 1, Basophils (%) (Auto) 1, Neutrophils # (Auto) 7.1, Lymphocytes # (Auto) 1.3, Monocytes # (Auto) 1.1H, Eosinophils # (Auto) 0.1, Basophils # (Auto) 0.1, Sodium Level 137, Potassium Level 4.1, Chloride Level 102, Carbon Dioxide Level 23, Anion Gap 12, Blood Urea Nitrogen 15, Creatinine 1.09, Estimat Glomerular Filtration Rate > 60, BUN/ Creatinine Ratio 14, Glucose Level 169H, Calcium Level 8.8, Total Bilirubin 1.1H , Aspartate Amino Transf (AST/SGOT) 23, Alanine Aminotransferase (ALT/SGPT) 20, Alkaline Phosphatase 78, Total Protein 6.5, Albumin 3.6, Phenytoin (Dilantin) Level 26.5*H 10/29/16 04:50: Blood Gas Puncture Site L RAD, Blood Gas Patient Temperature 98.9, Arterial Blood pH 7.43, Arterial Blood Partial Pressure CO2 40, Arterial Blood Partial Pressure O2 103H, Arterial Blood HCO3 27, Arterial Blood Total CO2 27.7, Arterial Blood Oxygen Saturation 99, Arterial Blood Base Excess 2.6H, Jay Test YES-POS, Blood Gas Ventilator Setting NO, Blood Gas Inspired Oxygen RA Radiology NAME: [facility] REC#: [id number] PT STATUS: ADM Manas : 1935 PHYSICIAN: ALISHA JIMÉNEZ DO ADMIT DATE: 10/28/16/ICU Signed Date of Exam: 10/28/16 CT HEAD WO-R/O STROKE INDICATION: Vertigo with left upper extremity and facial paresthesia Comparison is made to study dated 07/24/2009. Multiple contiguous axial CT images of the head are obtained. Ventricles and sulci are prominent. There is no evidence of hemorrhage. No territorial low density is seen. There is mild atherosclerotic calcification within distal internal carotid and vertebral arteries. There is no abnormal mass effect or shift of midline structures. IMPRESSION: Probable senescent findings in the brain without CT evidence of acute intracranial abnormality or adverse change. Dictated by: Dictated on workstation # [id number] Dict: 10/28/1629 Trans: 10/28/1643 Interpreted by: MILDRED BOATENG MD Electronically signed by: MILDRED BOATENG MD 10/28/16 0843 Assessment/Plan Assessment/Plan Assess & Plan/Chief Complaint multiple seizures. Dilantin toxicity. Hold Dilantin today. Lethargy. Diabetes. Coronary artery disease Clinical Quality Measures DVT/VTE Risk/Contraindication: Risk Factor Score Per Nursin RFS Level Per Nursing on Admit: 4+=Very High DALIA LAWLER DO Oct 29, 2016 07:39
[2016-10-29] MEDS ORDERED: VANCOMYCIN INJECTION 2,000 MG in NS IV 500 ML 500 ML IV NR (09:00)
[2016-10-29] MEDS: meTOprolol TARTRATE 50 MG (LOPRESSOR) TAB PO SCH ×2 (09:00→20:30)
[2016-10-29] MEDS: ISOSORBIDE MONONITRATE 60 MG (IMDUR) TAB PO SCH (09:00)
[2016-10-29] MEDS: amLODIPine 10 MG (NORVASC) TAB PO SCH (09:00)
[2016-10-29] MEDS: LOSARTAN 50 MG (COZAAR) TAB PO SCH (09:00)
[2016-10-29] MEDS: ASPIRIN E.C. 81 MG (ECOTRIN) TAB PO SCH (09:00)
--- NOTE | 2016-10-29 10:40 | Diagnostic Imaging Report ---
INDICATION: Right arm swelling. Grayscale and color Doppler evaluation of the deep veins of the right upper extremity are performed with spectral analysis. Deep veins of the right upper extremity are patent with normal venous flow. There is normal response to compression and augmentation. Superficial venous structures in the upper arm and forearm contain thrombus indicating superficial thrombophlebitis. IMPRESSION: Superficial thrombophlebitis from mid upper arm to wrist without ultrasound evidence of deep venous thrombosis. Dictated by: Dictated on workstation # [id number]
[2016-10-29] MEDS ORDERED: meTOprolol 5 MG/5 ML (LOPRESSOR) VIAL IV ONE (13:30)
--- NOTE | 2016-10-29 17:08 | Consultation-Cardiology ---
HPI-Cardiology Cardiology Consultation Date of Consultation 10/29/16 Date of Admission Time Seen by Provider: 17:01 Indication: change in mental status HPI 81 years old gentleman with history of coronary artery disease, TAVR, history of seizure disorder, has been off Dilantin for a while after seeing a neurologist in [place] and undergoing extensive workup. Patient has been having pain in his knee and he was started on tramadol, had seizure activity yesterday and initially refused to come to the emergency room then had another seizure lasted for about 40 minutes and brought to the emergency room, received large doses of Dilantin. Since his arrival yesterday morning he has been confused, lethargic, upon my interview he was awake and answering questions but still confused and lethargic and follow sleep, trying to get out of bed. He was noted to have erythema and swelling in his right arm secondary to thrombophlebitis. No chest pain, no shortness of breath was reported. Home Medications & Allergies Allergies: Coded Allergies: Penicillins (Unverified Allergy, Unknown, 12/25/14) Home Medication List Reviewed: Yes UTA-Sopqiz-Efalpq Hx Patient Social History Marital Status: Employed/Student: unemployed Alcohol Use: Occasionally Uses Recreational Drug Use: No Smoking Status: Former Smoker Former smoker/When Quit: Feb 23, 1961 Recent Foreign Travel: No Recent Infectious Disease Expo: No Recent Hopitalizations: Yes (200, DIVERTICULITIS ABOUT 20 YEARS AGO) Physical Abuse Screen: No Sexual Abuse: No Immunizations Up To Date Tetanus Booster (TDap): More than 5yrs Date of Pneumonia Vaccine: Apr 28, 2014 Date of Influenza Vaccine: Oct 24, 2014 Past Medical History past medical history as discussed below Family Medical History Significant Family History: No Pertinent Family Hx Family History: Cardiovascular disease 19 MOTHER Cervical cancer Diabetes mellitus 19 FATHER Constitutional: see HPI, malaise, weakness, other (Ángel is unable to provide history, review of system was obtained by interviewing his .) EENTM: see HPI Respiratory: see HPI, No cough, No dyspnea on exertion, No hemoptysis, No orthopnea, No phlegm, No short of breath, No stridor, No wheezing, No other Cardiovascular: see HPI, No chest pain, No edema, No Hx of Intervention, No palpitations, No syncope, No vascular heart diseas, No other Gastrointestinal: see HPI Genitourinary: see HPI Musculoskeletal: see HPI, joint pain Skin: see HPI Psychiatric/Neurological: No Symptoms Reported, See HPI, Seizure, Weakness Reviewed Test Results Reviewed Test Results Lab Laboratory Tests Test 10/28/16 17:33 10/28/16 18:15 10/28/16 23:39 10/29/16 04:30 Range/Units Glucometer 129 H 162 H 70-110 MG/DL Urine Color YELLOW Urine Clarity CLEAR Urine pH 7 5-9 Urine Specific [place] 1.010 L 1.016-1.022 Urine Protein NEGATIVE NEGATIVE Urine Glucose (UA) NEGATIVE NEGATIVE Urine Ketones NEGATIVE NEGATIVE Urine Nitrite NEGATIVE NEGATIVE Urine Bilirubin NEGATIVE NEGATIVE Urine Urobilinogen NORMAL NORMAL MG/DL Urine Leukocyte Esterase NEGATIVE NEGATIVE Urine RBC (Auto) 1+ H NEGATIVE Urine RBC NONE /HPF Urine WBC NONE /HPF Urine Squamous Epithelial Cells RARE /HPF Urine Crystals NONE /LPF Urine Bacteria NONE /HPF Urine Casts NONE /LPF Urine Mucus NEGATIVE /LPF Urine Culture Indicated NO White Blood Count 9.6 4.3-11.0 10^3/uL Red Blood Count 4.21 L 4.35-5.85 10^6/uL Hemoglobin 12.5 L 13.3-17.7 G/DL Hematocrit 39 L 40-54 % Mean Corpuscular Volume 92 80-99 FL Mean Corpuscular Hemoglobin 30 25-34 PG Mean Corpuscular Hemoglobin Concent 32 32-36 G/DL Red Cell Distribution Width 14.0 10.0-14.5 % Platelet Count 117 L 130-400 10^3/uL Mean Platelet Volume 11.1 H 7.4-10.4 FL Neutrophils (%) (Auto) 74 42-75 % Lymphocytes (%) (Auto) 14 12-44 % Monocytes (%) (Auto) 11 0-12 % Eosinophils (%) (Auto) 1 0-10 % Basophils (%) (Auto) 1 0-10 % Neutrophils # (Auto) 7.1 1.8-7.8 X 10^3 Lymphocytes # (Auto) 1.3 1.0-4.0 X 10^3 Monocytes # (Auto) 1.1 H 0.0-1.0 X 10^3 Eosinophils # (Auto) 0.1 0.0-0.3 10^3/uL Basophils # (Auto) 0.1 0.0-0.1 10^3/uL Sodium Level 137 135-145 MMOL/L Potassium Level 4.1 3.6-5.0 MMOL/L Chloride Level 102 98-107 MMOL/L Carbon Dioxide Level 23 21-32 MMOL/L Anion Gap 12 5-14 MMOL/L Blood Urea Nitrogen 15 7-18 MG/DL Creatinine 1.09 0.60-1.30 MG/DL Estimat Glomerular Filtration Rate > 60 BUN/Creatinine Ratio 14 Glucose Level 169 H 70-105 MG/DL Calcium Level 8.8 8.5-10.1 MG/DL Total Bilirubin 1.1 H 0.1-1.0 MG/DL Aspartate Amino Transf (AST/SGOT) 23 5-34 U/L Alanine Aminotransferase (ALT/SGPT) 20 0-55 U/L Alkaline Phosphatase 78 40-136 U/L Total Protein 6.5 6.4-8.2 GM/DL Albumin 3.6 3.2-4.5 GM/DL Phenytoin (Dilantin) Level 26.5 *H 10.0-20.0 UG/ML Test 10/29/16 04:50 10/29/16 12:03 Range/Units Blood Gas Puncture Site L RAD Blood Gas Patient Temperature 98.9 Arterial Blood pH 7.43 7.37-7.43 Arterial Blood Partial Pressure CO2 40 35-45 MMHG Arterial Blood Partial Pressure O2 103 H 79-93 MMHG Arterial Blood HCO3 27 23-27 MMOL/L Arterial Blood Total CO2 27.7 21.0-31.0 MMOL/L Arterial Blood Oxygen Saturation 99 94-100 % Arterial Blood Base Excess 2.6 H -2.5-2.5 MMOL/L Jay Test YES-POS Blood Gas Ventilator Setting NO Blood Gas Inspired Oxygen RA Glucometer 147 H 70-110 MG/DL Physical Exam Vital Signs Vital Sign - Last 12Hours 10/28/16 10/28/16 04:46 04:50 Temp 98.7 Pulse 77 Resp 16 B/P (MAP) 168/59 Pulse Ox 92 O2 Delivery Room Air O2 Flow Rate 2.00 Capillary Refill : Less Than 3 Seconds General Appearance: WD/WN, Moderate Distress Eyes: Bilateral Eye Normal Inspection, Bilateral Eye PERRL, Bilateral Eye EOMI HEENT: PERRL/EOMI, TMs Normal, Normal ENT Inspection, Pharynx Normal Neck: Full Range of Motion, Normal Inspection, Non Tender, Supple Respiratory: Chest Non Tender, Lungs Clear, Normal Breath Sounds, No Accessory Muscle Use, No Respiratory Distress Cardiovascular: Regular Rate, Rhythm, No Edema, No Gallop, No JVD, Normal Peripheral Pulses, Systolic Murmur Gastrointestinal: Normal Bowel Sounds, No Organomegaly, No Pulsatile Mass, Non Tender, Soft Back: Normal Inspection, No CVA Tenderness, No Vertebral Tenderness Extremity: Normal Capillary Refill, Normal Inspection, Normal Range of Motion, Non Tender, No Calf Tenderness, No Pedal Edema, Swelling (erythema and swelling on the right upper extremity) Neurologic/Psychiatric: Alert, Other (confused and lethargic) Skin: Normal Color, Warm/Dry, Erythema (on the right upper extremity with swelling, warm to touch) Lymphatic: No Adenopathy A/P-Cardiology Admission Diagnosis Change in mental status Seizure disorder Coronary artery disease Aortic valve replacement Assessment/Plan Change in mental status, lethargy and confusion, probably post ictal, status post to seizure activity the second one lasted for 40 minutes, given large doses of Dilantin, monitored in ICU. managed by Dr. Malik, continue to monitor Hypertension, unable to take his oral medication. Continue on IV Lopressor for now and monitor blood pressure Erythema and swelling on the right upper extremity, thrombophlebitis, started on vancomycin, patient has prosthetic valve in the aortic position. Continue to monitor closely. Seizure disorder, patient was seen by neurologist in [place] and underwent extensive workup, has been taken off Dilantin last spring. Right knee pain, patient was on tramadol as an outpatient. Coronary artery disease, history of CABG x 5 in 2005 and aortic valve repair, most recent cardiac catheterization November 22, 2014 revealing occlusion of vein graft x 3 to OM2, right PDA and mid RCA. Patent vein graft to OM1 giving collateral to distal RCA, patent TRAYLOR to LAD, [place] coronary artery-extensive disease, normal LV, EF 60%, patient had TAVR done in June 2015 at the [facility] with excellent results, recovered well. continue to monitor closely Aortic valve stenosis, status post TAVR using 29 mm Evolut on June 28, [address] Boone, recovered well. I will repeat 2-D echocardiogram Chest pain, reporting improvement. Continue to monitor. Congestive heart failure, chronic left ventricular diastolic dysfunction, normal systolic function with ejection fraction 60-65 percent, his heart failure is probably due to his aortic valve stenosis in addition to pulmonary hypertension, reporting significant improvement since his valve replacement. I will reevaluate 2-D echocardiogram. Hypertension, currently off his oral medication, I will use Lopressor IV and monitor blood pressure Hyperlipidemia, continue to monitor lipids History of paroxysmal atrial fibrillation currently sinus rhythm- CHADs2 score 5. Highly recommend aggressive anticoagulation. discussed with patient other medications in tone of Coumadin. Patient continues to refuse oral anti- coagulation. Status post CVA with left sided numbness, patient currently taking aspirin 81 mg daily. Mild bilateral carotid artery stenosis ultrasound was done in November 2014, continue to monitor Diabetes mellitus, followed and monitored by primary care physician. History of acute renal failure requiring dialysis, improved. We will continue to monitor renal function. Clinical Quality Measures DVT/VTE Risk/Contraindication: Risk Factor Score Per Nursin RFS Level Per Nursing on Admit: 4+=Very High SUZIE HAIR MD Oct 29, 2016 17:08
[2016-10-29] MEDS ORDERED: FUROSEMIDE 40 MG/4 ML INJ (LASIX) IVP NR (17:15)
[2016-10-29] MEDS: meTOprolol 5 MG/5 ML (LOPRESSOR) VIAL IV SCH (18:06)
[2016-10-29] MEDS: ATORVASTATIN 80 MG (LIPITOR) TABLET PO SCH (20:30)
[2016-10-29] MEDS ORDERED: VANCOMYCIN 1250 MG/NS 250 ML IVPB IV SCH ×2 (21:00)
[2016-10-29] MEDS: ENOXAPARIN 40 MG/0.4 ML (LOVENOX) SYR SC SCH (22:34)
[2016-10-30] VITALS (10 sets, daily range): BP systolic 106–159; BP diastolic 50–137
[2016-10-30] MEDS: inSUlin (REGULAR) HUMAN 1 UNIT/0.01 ML (CHARGE PER UNIT) SC SCH ×5 (00:12→21:00)
[2016-10-30] MEDS: meTOprolol 5 MG/5 ML (LOPRESSOR) VIAL IV SCH ×2 (00:12→06:30)
[2016-10-30] MEDS ORDERED: POTASSIUM CL 10MEQ/50ML IVPB 50 ML IV SCH (06:00)
[2016-10-30] MEDS ORDERED: MAGNESIUM 1 GM/100 ML IVPB 100 ML IV SCH (06:00)
[2016-10-30] MEDS ORDERED: KCL 20 MEQ TAB (K-DUR) PO SCH (06:00)
[2016-10-30] MEDS: 1/2 NS IV SOLUTION 1,000 ML IV SCH (06:27)
--- NOTE | 2016-10-30 07:52 | Cardiology Progress Note ---
Subjective Date Seen by Provider: Oct 30, 2016 Time Seen by Provider: 07:49 Subjective/Events-last exam patient is laying down in bed, more awake today, still disoriented, denied any chest pain or shortness of breath. Review of Systems General: No Chills, No Night Sweats, No Fatigue, No Malaise, No Appetite, No Other HEENT: No Head Aches, No Visual Changes, No Eye Pain, No Ear Pain, No Dysphasia , No Sinus Congestion, No Post Nasal Drip, No Sore Throat, No Other Pulmonary: No Dyspnea, No Cough, No Pleuritic Chest Pain, No Other Cardiovascular: No: Chest Pain, Palpitations, Orthopnea, Paroxysmal Noc. Dyspnea, Edema, Lt Headedness, Other Objective-Cardiology Exam Last Set of Vital Signs Vital Signs 10/28/16 10/30/16 18:00 06:00 Pulse 66 Resp 20 B/P (MAP) 154/63 Pulse Ox 98 O2 Delivery Room Air O2 Flow Rate 2.00 Capillary Refill : Less Than 3 Seconds I&O Intake and Output 10/31/16 00:00 Intake Total 0 ml Output Total 800 ml Balance -800 ml Intake Oral 0 ml Output Urine Total 800 ml General: Alert, Cooperative, Mild Distress HEENT: Atraumatic, PERRLA Neck: Supple, No JVD, No Thyromegaly Lungs: Clear to Auscultation, Normal Air Movement Heart: Regular Rate, Normal S1, Normal S2, No Murmurs Abdomen: Normal Bowel Sounds, Soft, No Tenderness, No Hepatosplenomegaly, No Masses Extremities: No Clubbing, No Cyanosis, No Edema, Normal Pulses, No Tenderness/ Swelling Skin: No Rashes, No Breakdown, No Significant Lesion Neuro: Normal Gait, Normal Speech, Strength at 5/5 X4 Ext, Normal Tone, Sensation Intact Psych/Mental Status: Mental Status NL, Mood NL A/P-Cardiology Admission Diagnosis Change in mental status Seizure disorder Coronary artery disease Aortic valve replacement Assessment/Plan Change in mental status, lethargy and confusion, more awake today, status post to seizure activity the second one lasted for 14 minutes, given large doses of Dilantin, monitored in ICU. managed by Dr. Malik, continue to monitor Hypertension, unable to take his oral medication, probably will restart diet today. Erythema and swelling on the right upper extremity, thrombophlebitis, started on vancomycin, patient has prosthetic valve in the aortic position, I will start on Levaquin and monitor his tolerance and response Seizure disorder, patient was seen by neurologist in [place] and underwent extensive workup, has been taken off Dilantin last spring. Right knee pain, patient was on tramadol as an outpatient. Coronary artery disease, history of CABG x 5 in 2005 and aortic valve repair, most recent cardiac catheterization November 22, 2014 revealing occlusion of vein graft x 3 to OM2, right PDA and mid RCA. Patent vein graft to OM1 giving collateral to distal RCA, patent TRAYLOR to LAD, [place] coronary artery-extensive disease, normal LV, EF 60%, patient had TAVR done in June 2015 at the [facility] with excellent results, recovered well. continue to monitor closely Aortic valve stenosis, status post TAVR using 29 mm Evolut on June 28, [address] Boone, recovered well. I will repeat 2-D echocardiogram Chest pain, reporting improvement. Continue to monitor. Congestive heart failure, chronic left ventricular diastolic dysfunction, normal systolic function with ejection fraction 60-65 percent, his heart failure is probably due to his aortic valve stenosis in addition to pulmonary hypertension, reporting significant improvement since his valve replacement. I will reevaluate 2-D echocardiogram. Hypertension, currently off his oral medication, I will use Lopressor IV and monitor blood pressure Hyperlipidemia, continue to monitor lipids History of paroxysmal atrial fibrillation currently sinus rhythm- CHADs2 score 5. Highly recommend aggressive anticoagulation. discussed with patient other medications in tone of Coumadin. Patient continues to refuse oral anti- coagulation. Status post CVA with left sided numbness, patient currently taking aspirin 81 mg daily. Mild bilateral carotid artery stenosis ultrasound was done in November 2014, continue to monitor Diabetes mellitus, followed and monitored by primary care physician. History of acute renal failure requiring dialysis, improved. We will continue to monitor renal function. Clinical Quality Measures DVT/VTE Risk/Contraindication: Risk Factor Score Per Nursin RFS Level Per Nursing on Admit: 4+=Very High SUZIE HAIR MD Oct 30, 2016 07:52
[2016-10-30] MEDS ORDERED: TROUGH ORDER-PHARMACY XX NR (08:00)
[2016-10-30 08:03] LABS: MEAN PLATELET VOLUME 11.1 FL (7.4-10.4); RED BLOOD COUNT 4.61 10^6/uL (4.35-5.85); RED CELL DISTRIBUTION WIDTH 13.8 % (10.0-14.5); WHITE BLOOD COUNT 9.5 10^3/uL (4.3-11.0)
--- NOTE | 2016-10-30 08:12 | Progress Note (SOAP) ---
Subjective Time Seen by Provider: 08:10 Subjective/Events-last exam multiple seizures. Acute mental status change. Diabetes. Superficial thrombophlebitis right arm aortic valve replacement. Patient awake this morning. Dilantin toxicity. Cellulitis right arm. Patient improving. Objective Exam Vital Signs Date Time Temp Pulse Resp B/P (MAP) Pulse Ox O2 Delivery O2 Flow Rate FiO2 10/30/16 07:53 97.3 10/30/16 07:00 60 10/30/16 06:00 66 20 154/63 98 Room Air 10/30/16 05:00 64 14 154/78 98 Room Air 10/30/16 04:00 66 20 159/75 97 Room Air 10/30/16 03:00 61 13 144/137 96 Room Air 10/30/16 02:00 61 24 138/54 92 Room Air 10/30/16 01:00 58 21 140/52 93 Room Air 10/30/16 01:00 60 10/30/16 00:30 Room Air 10/30/16 00:00 99.5 10/30/16 00:00 68 25 132/69 93 Room Air 10/29/16 23:00 70 24 141/61 94 Room Air 10/29/16 22:00 71 23 162/57 91 Room Air 10/29/16 21:00 70 32 132/57 96 Room Air 10/29/16 20:00 68 23 149/52 92 Room Air 10/29/16 19:51 99.6 10/29/16 19:00 65 10/29/16 19:00 64 24 140/45 93 Room Air 10/29/16 18:00 70 24 132/55 93 Room Air 10/29/16 17:00 73 20 152/66 92 Room Air 10/29/16 16:00 68 25 151/74 92 Room Air 10/29/16 16:00 100.7 10/29/16 15:00 65 17 136/57 97 Room Air 10/29/16 14:00 64 9 136/57 98 Room Air 10/29/16 13:00 70 25 170/77 Room Air 10/29/16 13:00 71 10/29/16 12:00 98.0 10/29/16 12:00 67 28 96 Room Air 10/29/16 11:00 68 9 169/72 97 Room Air 10/29/16 10:00 68 8 155/81 97 Room Air 10/29/16 09:00 66 8 156/84 96 Room Air Capillary Refill : Less Than 3 Seconds General Appearance: No Apparent Distress, WD/WN HEENT: Normal ENT Inspection Neck: Full Range of Motion, Normal Inspection Respiratory: Chest Non Tender, Lungs Clear, Normal Breath Sounds, No Accessory Muscle Use, No Respiratory Distress Cardiovascular: Regular Rate, Rhythm Gastrointestinal: non tender, soft Results Lab Laboratory Tests 10/30/16 07:45 Laboratory Tests 10/29/16 12:03: Glucometer 147H 10/29/16 17:30: Glucometer 115H 10/29/16 23:56: Glucometer 144H 10/30/16 06:12: Glucometer 138H 10/30/16 07:45: White Blood Count 9.5, Red Blood Count 4.61, Hemoglobin 13.5, Hematocrit 42, Mean Corpuscular Volume 92, Mean Corpuscular Hemoglobin 29, Mean Corpuscular Hemoglobin Concent 32, Red Cell Distribution Width 13.8, Platelet Count 118L, Mean Platelet Volume 11.1H Assessment/Plan Assessment/Plan Assess & Plan/Chief Complaint multiple seizures. Dilantin toxicity. Hold Dilantin today. Lethargy. Diabetes. Coronary artery disease. . 10/30/16. Multiple seizures. Mental status change. Dilantin toxicity. Lethargy getting better. Diabetes. Coronary artery disease. Superficial thrombophlebitis of right arm. Cellulitis of right arm Clinical Quality Measures DVT/VTE Risk/Contraindication: Risk Factor Score Per Nursin RFS Level Per Nursing on Admit: 4+=Very High DALIA LAWLER DO Oct 30, 2016 8:12 am
[2016-10-30 08:30] LABS: ANION GAP 10 MMOL/L (5-14); BLOOD UREA NITROGEN 17 MG/DL (7-18); BUN/CREATININE RATIO 18; CALCIUM 8.9 MG/DL (8.5-10.1); CARBON DIOXIDE 28 MMOL/L (21-32); CHLORIDE 100 MMOL/L (98-107); CREATININE SERUM 0.92 MG/DL (0.60-1.30); GFR ESTIMATED > 60; GLUCOSE 137 MG/DL (70-105); MAGNESIUM 1.6 MG/DL (1.8-2.4); SODIUM 138 MMOL/L (135-145)
[2016-10-30] MEDS: glipiZIDE 5 MG (GLUCOTROL) TAB PO SCH (09:40)
[2016-10-30] MEDS: ASPIRIN E.C. 81 MG (ECOTRIN) TAB PO SCH (09:40)
[2016-10-30] MEDS: meTOprolol TARTRATE 50 MG (LOPRESSOR) TAB PO SCH ×2 (09:40→21:40)
[2016-10-30] MEDS: LOSARTAN 50 MG (COZAAR) TAB PO SCH (09:41)
[2016-10-30] MEDS: LEVOFLOXACIN 750 MG/150 ML IV 150 ML IV SCH (09:42)
[2016-10-30] MEDS: ISOSORBIDE MONONITRATE 60 MG (IMDUR) TAB PO SCH (09:42)
--- NOTE | 2016-10-30 11:11 | Physical Therapy Evaluation ---
PT Evaluation-General Medical Diagnosis Admission Date Oct 28, 2016 at 13:20 Medical Diagnosis: multiple seizures/AMS Onset Date: Oct 28, 2016 Therapy Diagnosis Therapy Diagnosis: generalized weakness Height/Weight Height (Feet): 6 Height (Inches): 0.00 Weight (Pounds): 199 Weight (Ounces): 4.0 Precautions Precautions/Isolations: Seizure, Fall Prevention, Standard Precautions Referral Physician: King Reason for Referral: Evaluation/Treatment Medical History Pertinent Medical History: Arthritis, CABG, CAD, DM, Heart Failure, HTN, Renal Insufficiency Additional Medical History TIA's Current History EMS call x 2. The first seizure episode patient refused transport and jumped off the cart. The second seizure, patient was unresponsive requiring transport to ED. Reviewed History: Yes Social History Home: Single Level Current Living Status: Spouse Prior/Core FIM Prior Level of Function Functional [place] Measure 0=Not Assessed/NA 4=Minimal Assistance 1=Total Assistance 5=Supervision or Setup 2=Maximal Assistance 6=Modified [place] 3=Moderate Assistance 7=Complete [place] Bed Mobility: 6 Transfers (B,C,W/C) (FIM): 6 Gait: 6 uses FWW or cane PLOF PT Evaluation-Current Subjective Patient if very [place], agrees to PT. Spouse present. Pain Numeric Pain Scale: 0-No Pain Location: No Pain Reported Objective Patient Orientation: Confused Problem Solving: Poor Attachments: IV ROM/Strength ROM Lower Extremities bilateral LE WNL Strenght Lower Extremities right knee flexion/extension 4-/5; hip flexion 4-/5; ankle dorsi/plantarflexion 4-/5 left knee flexion/extension 4-/5; hip flexion 4-/5; ankle dorsi/plantarflexion 4 -/5 Integumentary/Posture Integumentary refer to nursing notes Bowel Incontinence: No Bladder Incontinence: No Posture WNL Neuromuscular (Tone, Coordination, Reflexes) diminished coordination and sensation; unaware of safety concerns Sensory Vision: Functional Hearing: Hearing Aid/Aides Sensation Right Lower Extremit: Impaired Sensation Left Lower Extremity: Impaired Transfers Functional [place] Measure 0=Not Assessed/NA 4=Minimal Assistance 1=Total Assistance 5=Supervision or Setup 2=Maximal Assistance 6=Modified [place] 3=Moderate Assistance 7=Complete [place] Transfers (B, C, W/C) (FIM): 3 Scootin Rollin Supine to/from Sit: 3 Sit to/from Stand: 3 mod assist due to patient is unaware of safety concerns Gait Mode of Locomotion: Walk Anticipated Mode of Locomotion: Walk Gait (FIM): 3 Distance (FIM): 3=150 ft Distance: 250' Gait Level of Assist: 3 Gait Persons Needed: 1 Gait Assistive Device: FWW Comments/Gait Description listing to right with PT correction; very rapid gait and decreased safety awareness Balance Sitting Static: Normal Sitting Dynamic: Fair Standing Static: Fair Standing Dynamic: Fair Assessment/Needs 81 y.o. male, will benefit from skilled PT to address functional strength and mobility to improve current LOF. Patient is limited with safety aware and safe functional mobility. Rehab Potential: Fair Post Rehab Potential-Barriers: AMS PT Adjusto Writer Operator Goals Custodial Goals PT Adjusto Writer Operator Goals Time Frame: Nov 07, 2016 Transfers (B,C,W/C) (FIM): 5 Gait (FIM): 5 Gait distance (FIM): 3=150 ft Distance: 250' Gait Level of Assist: 5 Gait Assistive Device: FWW, Cane Single Point PT Plan Problem List Problem List: Safety, Balance, Gait, Transfer Treatment/Plan Treatment Plan: Continue Plan of Care Treatment Plan: Bed Mobility, Education, Functional Activity Molly, Functional Strength, Gait, Safety, Therapeutic Exercise, Transfers Treatment Duration: Nov 07, 2016 Frequency: 11 times per week Estimated Hrs Per Day: .5 hour per day Patient and/or Family Agrees t: Yes Safety Risks/Education Patient Education: Safety Issues Teaching Recipient: Patient, Family Teaching Methods: Discussion Response to Teaching: Reinforcement Needed Discharge Recommendations Therapy D/C Recommendations: Senior Living (TCU/NH) Time/GCodes Time In: 1025 Time Out: 1040 Total Billed Treatment Time: 15 Total Billed Treatment 1 visit EVMod 15 min G Codes Necessary: RACHEL Epps PT Oct 30, 2016 11:11
[2016-10-30] MEDS: VANCOMYCIN INJECTION 750 MG in NS (IVPB) 250 ML IV SCH ×2 (11:13→21:39)
[2016-10-30] MEDS: BUMETANIDE PO SCH (12:02)
[2016-10-30] MEDS: amLODIPine 10 MG (NORVASC) TAB PO SCH (12:03)
[2016-10-30] MEDS: MAGNESIUM 1 GM/100 ML IVPB 100 ML IV SCH ×2 (12:40→14:40)
--- NOTE | 2016-10-30 14:13 | Physical Therapy Daily Note ---
PT Daily Note-Current Subjective Patient is in bed and agrees to PT. Education with patient prior to treatment on safety concerns and following the direction of the PT to ensure safe functional mobility. Pain Numeric Pain Scale: 0-No Pain Location: No Pain Reported Mental Status Patient Orientation: Confused Attachments: IV Transfers Functional [place] Measure 0=Not Assessed/NA 4=Minimal Assistance 1=Total Assistance 5=Supervision or Setup 2=Maximal Assistance 6=Modified [place] 3=Moderate Assistance 7=Complete IndependenceIRFPAI Quality Coding Scale 6 Independent with activity with or without an assistive device 5 Patient requires set up or clean up by helper. Patient completes activity by themselves 4 Supervision or touching assist (CGA). [place] provide cues , steadying assist 3 The helper provides less than half the effort to complete the activity 2 The helper provides more than half the effort to complete the activity 1 Dependent. The helper does all the effort to complete an activity 7 Patient refused to complete or attempt activity 9 The patient did not perform the activity before the current illness or injury 88 Not attempted due to Medical conditions or safety concerns Transfers (B, C, W/C) (FIM): 4 Scootin Rollin Supine to/from Sit: 5 Sit to/from Stand: 4 Bed to/from Chair: 4 Patient is slightly unsteady with turning to sit in recliner after gait requiring assistance to attain safely. Gait Training Gait (FIM): 4 Distance (FIM): 3=150 ft Distance: 225' Gait Level of Assist: 4 Gait Persons Needed: 1 Gait Assistive Device: FWW improved gait sequence this p.m. with direction to slow gait for safety. Patient did display 2 episodes of LOB with PT correction, however, not as severe as a.m. Exercises Seated Therapy Exercises: Ankle pumps, Long arc quads Seated Reps: 15 Assessment Patient slightly improved this p.m. with gross motor skills, however, continues to unaware of safety awareness or concerns. Spouse is present during treatment and states this is normal. PT to continue to address functional strength and mobility to ensure safe return to home. PT Group Home Goals Jewel Inserter Goals PT Group Home Goals Time Frame: Nov 07, 2016 Transfers (B,C,W/C) (FIM): 5 Gait (FIM): 5 Gait distance (FIM): 3=150 ft Distance: 250' Gait Level of Assist: 5 Gait Assistive Device: FWW, Cane Single Point PT Plan Treatment/Plan Treatment Plan: Continue Plan of Care Treatment Plan: Bed Mobility, Education, Functional Activity Molly, Functional Strength, Gait, Safety, Therapeutic Exercise, Transfers Treatment Duration: Nov 07, 2016 Frequency: 11 times per week Estimated Hrs Per Day: .5 hour per day Patient and/or Family Agrees t: Yes Time/GCodes Time In: 1325 Time Out: 1340 Total Billed Treatment Time: 15 Total Billed Treatment 1 visit GT 15 min RACHEL JIMENES PT Oct 30, 2016 14:13
[2016-10-30] MEDS: ENOXAPARIN 40 MG/0.4 ML (LOVENOX) SYR SC SCH (21:39)
[2016-10-30] MEDS: ATORVASTATIN 80 MG (LIPITOR) TABLET PO SCH (21:39)
[2016-10-31] VITALS: BP 144/68
[2016-10-31] MEDS: 1/2 NS IV SOLUTION 1,000 ML IV SCH (01:55)
[2016-10-31 04:05] VITALS: BP 131/52
[2016-10-31 04:27] LABS: BASOPHILS % (AUTO) 0 % (0-10); EOSINOPHILS # (AUTO) 0.3 10^3/uL (0.0-0.3); EOSINOPHILS % (AUTO) 4 % (0-10); LYMPHOCYTES # (AUTO) 1.3 X 10^3 (1.0-4.0); LYMPHOCYTES % (AUTO) 15 % (12-44); MEAN CORPUSCULAR HEMOGLOBIN 30 PG (25-34); MEAN CORPUSCULAR HGB CONC 33 G/DL (32-36); MEAN CORPUSCULAR VOLUME 91 FL (80-99); MEAN PLATELET VOLUME 11.2 FL (7.4-10.4); MONOCYTES # (AUTO) 1.2 X 10^3 (0.0-1.0); MONOCYTES % (AUTO) 13 % (0-12); NEUTROPHILS # (AUTO) 6.1 X 10^3 (1.8-7.8); NEUTROPHILS % (AUTO) 68 % (42-75); PLATELET COUNT 116 10^3/uL (130-400); RED BLOOD COUNT 3.88 10^6/uL (4.35-5.85); RED CELL DISTRIBUTION WIDTH 13.8 % (10.0-14.5); WHITE BLOOD COUNT 8.9 10^3/uL (4.3-11.0)
[2016-10-31 04:52] LABS: ALBUMIN 3.3 GM/DL (3.2-4.5); BILIRUBIN,TOTAL 0.7 MG/DL (0.1-1.0); CALCIUM 8.5 MG/DL (8.5-10.1); CREATININE SERUM 1.37 MG/DL (0.60-1.30); MAGNESIUM 2.1 MG/DL (1.8-2.4); POTASSIUM 3.8 MMOL/L (3.6-5.0); TOTAL PROTEIN 5.9 GM/DL (6.4-8.2)
[2016-10-31] MEDS: inSUlin (REGULAR) HUMAN 1 UNIT/0.01 ML (CHARGE PER UNIT) SC SCH (05:03)
--- NOTE | 2016-10-31 07:08 | Progress Note (SOAP) ---
Subjective Time Seen by Provider: 07:05 Subjective/Events-last exam mental status resolved. Multiple seizures. Diabetes. Confusion resolved. Right hand swelling resolved. Patient feeling good and wants to go home. Dilantin toxicity resolved Objective Exam Vital Signs Date Time Temp Pulse Resp B/P (MAP) Pulse Ox O2 Delivery O2 Flow Rate FiO2 10/31/16 04:05 99.1 62 18 131/52 94 10/31/16 01:00 56 10/31/16 00:00 98.6 60 18 144/68 94 10/30/16 20:00 97 Room Air 10/30/16 20:00 98.1 64 16 119/59 97 Room Air 10/30/16 19:00 63 10/30/16 16:01 97.3 64 14 106/50 94 Room Air 10/30/16 13:00 64 10/30/16 11:48 98.4 65 18 136/76 97 Room Air 10/30/16 07:53 97.3 Capillary Refill : Less Than 3 Seconds General Appearance: No Apparent Distress, WD/WN HEENT: Normal ENT Inspection Neck: Full Range of Motion, Normal Inspection Respiratory: Chest Non Tender, Lungs Clear, Normal Breath Sounds, No Accessory Muscle Use, No Respiratory Distress Cardiovascular: Regular Rate, Rhythm, No Murmur Gastrointestinal: non tender, soft Results Lab Laboratory Tests 10/30/16 07:45 10/31/16 04:07 Laboratory Tests 10/30/16 07:45: White Blood Count 9.5, Red Blood Count 4.61, Hemoglobin 13.5, Hematocrit 42, Mean Corpuscular Volume 92, Mean Corpuscular Hemoglobin 29, Mean Corpuscular Hemoglobin Concent 32, Red Cell Distribution Width 13.8, Platelet Count 118L, Mean Platelet Volume 11.1H, Sodium Level 138, Potassium Level 4.0, Chloride Level 100, Carbon Dioxide Level 28, Anion Gap 10, Blood Urea Nitrogen 17, Creatinine 0.92, Estimat Glomerular Filtration Rate > 60, BUN/Creatinine Ratio 18, Glucose Level 137H, Calcium Level 8.9, Magnesium Level 1.6L, Vancomycin Level Trough 19.3, Phenytoin (Dilantin) Level 25.1*H 10/30/16 10:55: Glucometer 291H 10/30/16 15:50: Glucometer 214H 10/30/16 20:30: Glucometer 114H 10/31/16 04:07: White Blood Count 8.9, Red Blood Count 3.88L, Hemoglobin 11.5L, Hematocrit 35L, Mean Corpuscular Volume 91, Mean Corpuscular Hemoglobin 30, Mean Corpuscular Hemoglobin Concent 33, Red Cell Distribution Width 13.8, Platelet Count 116L, Mean Platelet Volume 11.2H, Neutrophils (%) (Auto) 68, Lymphocytes (%) (Auto) 15 , Monocytes (%) (Auto) 13H, Eosinophils (%) (Auto) 4, Basophils (%) (Auto) 0, Neutrophils # (Auto) 6.1, Lymphocytes # (Auto) 1.3, Monocytes # (Auto) 1.2H, Eosinophils # (Auto) 0.3, Basophils # (Auto) 0.0, Sodium Level 136, Potassium Level 3.8, Chloride Level 102, Carbon Dioxide Level 20L, Anion Gap 14, Blood Urea Nitrogen 31H, Creatinine 1.37H, Estimat Glomerular Filtration Rate 50, BUN/ Creatinine Ratio 23, Glucose Level 139H, Calcium Level 8.5, Magnesium Level 2.1 , Total Bilirubin 0.7, Aspartate Amino Transf (AST/SGOT) 25, Alanine Aminotransferase (ALT/SGPT) 18, Alkaline Phosphatase 75, Total Protein 5.9L, Albumin 3.3, Phenytoin (Dilantin) Level 17.7 Microbiology 10/28/16 MRSA Screen - Final, Complete MRSA not isolated Assessment/Plan Assessment/Plan Assess & Plan/Chief Complaint multiple seizures. Dilantin toxicity. Hold Dilantin today. Lethargy. Diabetes. Coronary artery disease. . 10/30/16. Multiple seizures. Mental status change. Dilantin toxicity. Lethargy getting better. Diabetes. Coronary artery disease. Superficial thrombophlebitis of right arm. Cellulitis of right arm. . 10/31/16. Multiple seizures. Mental status change resolved. Dilantin toxicity resolved. Lethargy resolved. Diabetes. Coronary artery disease. Superficial thrombophlebitis right arm looking much better. Patient wanting to go home today. 2 office next Clinical Quality Measures DVT/VTE Risk/Contraindication: Risk Factor Score Per Nursin RFS Level Per Nursing on Admit: 4+=Very High DALIA LAWLER DO Oct 31, 2016 07:08
[2016-10-31] MEDS ORDERED: PHEN100C4 PO ×2 (07:12)
--- NOTE | 2016-10-31 07:14 | Discharge Inst-Simple/Standard ---
Discharge Inst-Standard Discharge Medications New, Converted or Re-Newed RX: Call to Patients Pharmacy Patient Instructions/Follow Up Plan of Care/Instructions/FU: 2 office next . To start Dilantin 4 capsules daily. Tylenol 3 one 3 times a day for pain when necessary Activity as Tolerated: Yes Discharge Diet: ADA Diet DALIA LAWLER DO Oct 31, 2016 07:14
[2016-10-31] MEDS ORDERED: ACET1TAB43 PO ×2 (07:17)
[2016-10-31 08:00] VITALS: BP 172/71
[2016-10-31] MEDS: meTOprolol TARTRATE 50 MG (LOPRESSOR) TAB PO SCH (08:07)
[2016-10-31] MEDS: ASPIRIN E.C. 81 MG (ECOTRIN) TAB PO SCH (08:08)
[2016-10-31] MEDS: ISOSORBIDE MONONITRATE 60 MG (IMDUR) TAB PO SCH (08:09)
[2016-10-31] MEDS: BUMETANIDE PO SCH (08:09)
[2016-10-31] MEDS: amLODIPine 10 MG (NORVASC) TAB PO SCH (08:10)
[2016-10-31] MEDS: glipiZIDE 5 MG (GLUCOTROL) TAB PO SCH (08:11)
[2016-10-31] MEDS: LOSARTAN 50 MG (COZAAR) TAB PO SCH (08:11)
--- NOTE | 2016-10-31 09:14 | Cardiology Progress Note ---
Subjective Date Seen by Provider: Oct 31, 2016 Time Seen by Provider: 09:13 Subjective/Events-last exam patient is feeling well. Denied any chest pain or shortness of breath. More awake today, walking around, requesting to go home. Review of Systems General: No Chills, No Night Sweats, No Fatigue, No Malaise, No Appetite, No Other HEENT: No Head Aches, No Visual Changes, No Eye Pain, No Ear Pain, No Dysphasia , No Sinus Congestion, No Post Nasal Drip, No Sore Throat, No Other Pulmonary: No Dyspnea, No Cough, No Pleuritic Chest Pain, No Other Cardiovascular: No: Chest Pain, Palpitations, Orthopnea, Paroxysmal Noc. Dyspnea, Edema, Lt Headedness, Other Objective-Cardiology Exam Last Set of Vital Signs Vital Signs 10/28/16 10/31/16 18:00 08:00 Temp 97.8 Pulse 68 Resp 24 B/P (MAP) 172/71 Pulse Ox 96 O2 Flow Rate 2.00 Capillary Refill : Less Than 3 Seconds I&O Intake and Output 11/01/16 00:00 Intake Total 1250 ml Output Total 1075 ml Balance 175 ml Intake Oral 250 ml IV Total 1000 ml Output Urine Total 1075 ml General: Alert, Oriented X3, Cooperative HEENT: Atraumatic, PERRLA Neck: Supple, No JVD, No Thyromegaly Lungs: Clear to Auscultation, Normal Air Movement Heart: Regular Rate, Normal S1, Normal S2, No Murmurs Abdomen: Normal Bowel Sounds, Soft, No Tenderness, No Hepatosplenomegaly, No Masses Extremities: No Clubbing, No Cyanosis, No Edema, Normal Pulses, No Tenderness/ Swelling Skin: No Rashes, No Breakdown, No Significant Lesion Neuro: Normal Gait, Normal Speech, Strength at 5/5 X4 Ext, Normal Tone, Sensation Intact Psych/Mental Status: Mental Status NL, Mood NL Results Lab Laboratory Tests 10/31/16 04:07 A/P-Cardiology Admission Diagnosis Change in mental status Seizure disorder Coronary artery disease Aortic valve replacement Assessment/Plan Change in mental status, lethargy and confusion, Dilantin toxicity, return to his baseline at this time and feeling significantly better. Okay for discharge Hypertension, unable to take his oral medication, start back on his oral medication monitor blood pressure Erythema and swelling on the right upper extremity, thrombophlebitis, started on vancomycin, patient has prosthetic valve in the aortic position, treated with Levaquin orally Seizure disorder, patient was seen by neurologist in [place] and underwent extensive workup, has been taken off Dilantin last spring. Right knee pain, patient was on tramadol as an outpatient. Coronary artery disease, history of CABG x 5 in 2005 and aortic valve repair, most recent cardiac catheterization November 22, 2014 revealing occlusion of vein graft x 3 to OM2, right PDA and mid RCA. Patent vein graft to OM1 giving collateral to distal RCA, patent TRAYLOR to LAD, [place] coronary artery-extensive disease, normal LV, EF 60%, patient had TAVR done in June 2015 at the [facility] with excellent results, recovered well. continue to monitor closely Aortic valve stenosis, status post TAVR using 29 mm Evolut on June 28, [address] Boone, recovered well. I will repeat 2-D echocardiogram Chest pain, reporting improvement. Continue to monitor. Congestive heart failure, chronic left ventricular diastolic dysfunction, normal systolic function with ejection fraction 60-65 percent, his heart failure is probably due to his aortic valve stenosis in addition to pulmonary hypertension, reporting significant improvement since his valve replacement. I will reevaluate 2-D echocardiogram. Hypertension, currently off his oral medication, I will use Lopressor IV and monitor blood pressure Hyperlipidemia, continue to monitor lipids History of paroxysmal atrial fibrillation currently sinus rhythm- CHADs2 score 5. Highly recommend aggressive anticoagulation. discussed with patient other medications in tone of Coumadin. Patient continues to refuse oral anti- coagulation. Status post CVA with left sided numbness, patient currently taking aspirin 81 mg daily. Mild bilateral carotid artery stenosis ultrasound was done in November 2014, continue to monitor Diabetes mellitus, followed and monitored by primary care physician. History of acute renal failure requiring dialysis, improved. We will continue to monitor renal function. Clinical Quality Measures DVT/VTE Risk/Contraindication: Risk Factor Score Per Nursin RFS Level Per Nursing on Admit: 4+=Very High SUZIE HAIR MD Oct 31, 2016 09:14
[2016-10-31] MEDS: LEVOFLOXACIN 750 MG/150 ML IV 150 ML IV SCH (09:40)
--- NOTE | 2016-10-31 09:43 | Physical Therapy Daily Note ---
PT Daily Note-Current Subjective Patient is more aware and alert on this date and agrees to PT. Pain Numeric Pain Scale: 0-No Pain Location: No Pain Reported Mental Status Patient Orientation: Normal For Age Transfers Functional [place] Measure 0=Not Assessed/NA 4=Minimal Assistance 1=Total Assistance 5=Supervision or Setup 2=Maximal Assistance 6=Modified [place] 3=Moderate Assistance 7=Complete IndependenceIRFPAI Quality Coding Scale 6 Independent with activity with or without an assistive device 5 Patient requires set up or clean up by helper. Patient completes activity by themselves 4 Supervision or touching assist (CGA). [place] provide cues , steadying assist 3 The helper provides less than half the effort to complete the activity 2 The helper provides more than half the effort to complete the activity 1 Dependent. The helper does all the effort to complete an activity 7 Patient refused to complete or attempt activity 9 The patient did not perform the activity before the current illness or injury 88 Not attempted due to Medical conditions or safety concerns Transfers (B, C, W/C) (FIM): 6 Scootin Sit to/from Stand: 6 Gait Training Gait (FIM): 6 Distance (FIM): 3=150 ft Distance: 225' Gait Level of Assist: 6 Gait Assistive Device: FWW much improved, safe and functional Assessment Patient much improved on this date. He is safe to return to home with spouse from a PT standpoint. PT Nursing Home Goals Nursing Home Goals PT Nursing Home Goals Time Frame: Nov 07, 2016 Transfers (B,C,W/C) (FIM): 5 Gait (FIM): 5 Gait distance (FIM): 3=150 ft Distance: 250' Gait Level of Assist: 5 Gait Assistive Device: FWW, Cane Single Point PT Plan Treatment/Plan Treatment Plan: Discontinue PT, goals met Treatment Plan: Bed Mobility, Education, Functional Activity Molly, Functional Strength, Gait, Safety, Therapeutic Exercise, Transfers Treatment Duration: Nov 07, 2016 Frequency: 11 times per week Estimated Hrs Per Day: .5 hour per day Patient and/or Family Agrees t: Yes Time/GCodes Time In: 825 Time Out: 835 Total Billed Treatment Time: 10 Total Billed Treatment 1 visit GT 10 min RACHEL JIMENES PT Oct 31, 2016 09:43
[2016-10-31 13:06] VITALS: BP 172/71
--- NOTE | 2016-11-04 07:42 | Discharge Summary ---
Diagnosis/Chief Complaint Date of Admission Oct 29, 2016 at 13:23 Date of Discharge Oct 31, 2016 at 11:30 Discharge Date: Oct 31, 2016 Discharge Time: 07:40 Admission Diagnosis Admission Diagnosis seizure disorder. Postictal. Coronary artery disease. valve replacement.. mitral Diabetes Discharge Diagnosis multiple seizures. Postictal. Change in mental status. Right knee pain. Chest pain. Hypertension. Hyperlipidemia. Coronary artery disease. Diabetes. Mitral valve replacement. Coronary artery disease. Superficial thrombophlebitis from mid-upper arm to rest Reason Hospital Visit seizures. Patient had 2 grand mal seizures. Patient had a seizure while sleeping in bed Called EMS and they came out. Patient refused to go to the emergency room at that time area patient had a 14 minutes seizure. 30-40 minutes later patient had a second seizure. 14 minutes and was brought to the hospital by EMS. Patient nonresponsive. CAT scan of the head negative. Patient had been on Dilantin 100 mg 4 capsules daily for 11 years. Patient seen at [facility] by neurologist tests in April and taken off of Dilantin. Patient 3 months ago put on tramadol. Patient and family new that decreases threshold for seizure. Patient in ICU now and moving around nonresponsive. History went over with Discharge Summary Consultations cardiology Discharge Physical Examination Allergies: Coded Allergies: Penicillins (Unverified Allergy, Unknown, 12/25/14) Vitals & I&Os Vital Signs Date Time Temp Pulse Resp B/P (MAP) Pulse Ox O2 Delivery O2 Flow Rate FiO2 10/31/16 13:06 68 24 172/71 97 Room Air 10/31/16 08:00 97.8 Hospital Course patient did better in hospital. Patient discharged home Labs (last 24 hrs) Laboratory Tests 10/28/16 04:55: White Blood Count 13.9H, Red Blood Count 4.24L, Hemoglobin 12.6L, Hematocrit 39L , Mean Corpuscular Volume 93, Mean Corpuscular Hemoglobin 30, Mean Corpuscular Hemoglobin Concent 32, Red Cell Distribution Width 13.8, Platelet Count 171, Mean Platelet Volume 10.9H, Neutrophils (%) (Auto) 80H, Lymphocytes (%) (Auto) 13, Monocytes (%) (Auto) 6, Eosinophils (%) (Auto) 1, Basophils (%) (Auto) 1, Neutrophils # (Auto) 11.2H, Lymphocytes # (Auto) 1.8, Monocytes # (Auto) 0.8, Eosinophils # (Auto) 0.1, Basophils # (Auto) 0.1, Prothrombin Time 13.6, INR Comment 1.0, Activated Partial Thromboplast Time 34, Sodium Level 137, Potassium Level 4.5, Chloride Level 103, Carbon Dioxide Level 15L, Anion Gap 19H , Blood Urea Nitrogen 21H, Creatinine 1.32H, Estimat Glomerular Filtration Rate 52, BUN/Creatinine Ratio 16, Glucose Level 242H, Calcium Level 9.3, Magnesium Level 2.0, Total Bilirubin 0.6, Aspartate Amino Transf (AST/SGOT) 22, Alanine Aminotransferase (ALT/SGPT) 24, Alkaline Phosphatase 83, Total Creatine Kinase 63, Creatine Kinase MB 2.3, Troponin I < 0.30, Total Protein 7.4, Albumin 4.1, TSH [place] Testing 2.08, Serum Alcohol < 10 10/28/16 09:06: Troponin I < 0.30 10/28/16 11:43: Glucometer 185H 10/28/16 17:33: Glucometer 129H 10/28/16 18:15: Urine Color YELLOW, Urine Clarity CLEAR, Urine pH 7, Urine Specific [place] 1.010L, Urine Protein NEGATIVE, Urine Glucose (UA) NEGATIVE, Urine Ketones NEGATIVE, Urine Nitrite NEGATIVE, Urine Bilirubin NEGATIVE, Urine Urobilinogen NORMAL, Urine Leukocyte Esterase NEGATIVE, Urine RBC (Auto) 1+H, Urine RBC NONE , Urine WBC NONE, Urine Squamous Epithelial Cells RARE, Urine Crystals NONE, Urine Bacteria NONE, Urine Casts NONE, Urine Mucus NEGATIVE, Urine Culture Indicated NO 10/28/16 23:39: Glucometer 162H 10/29/16 04:30: White Blood Count 9.6, Red Blood Count 4.21L, Hemoglobin 12.5L, Hematocrit 39L, Mean Corpuscular Volume 92, Mean Corpuscular Hemoglobin 30, Mean Corpuscular Hemoglobin Concent 32, Red Cell Distribution Width 14.0, Platelet Count 117L, Mean Platelet Volume 11.1H, Neutrophils (%) (Auto) 74, Lymphocytes (%) (Auto) 14 , Monocytes (%) (Auto) 11, Eosinophils (%) (Auto) 1, Basophils (%) (Auto) 1, Neutrophils # (Auto) 7.1, Lymphocytes # (Auto) 1.3, Monocytes # (Auto) 1.1H, Eosinophils # (Auto) 0.1, Basophils # (Auto) 0.1, Sodium Level 137, Potassium Level 4.1, Chloride Level 102, Carbon Dioxide Level 23, Anion Gap 12, Blood Urea Nitrogen 15, Creatinine 1.09, Estimat Glomerular Filtration Rate > 60, BUN/ Creatinine Ratio 14, Glucose Level 169H, Calcium Level 8.8, Total Bilirubin 1.1H , Aspartate Amino Transf (AST/SGOT) 23, Alanine Aminotransferase (ALT/SGPT) 20, Alkaline Phosphatase 78, Total Protein 6.5, Albumin 3.6, Phenytoin (Dilantin) Level 26.5*H 10/29/16 04:50: Blood Gas Puncture Site L RAD, Blood Gas Patient Temperature 98.9, Arterial Blood pH 7.43, Arterial Blood Partial Pressure CO2 40, Arterial Blood Partial Pressure O2 103H, Arterial Blood HCO3 27, Arterial Blood Total CO2 27.7, Arterial Blood Oxygen Saturation 99, Arterial Blood Base Excess 2.6H, Jay Test YES-POS, Blood Gas Ventilator Setting NO, Blood Gas Inspired Oxygen RA 10/29/16 12:03: Glucometer 147H 10/29/16 17:30: Glucometer 115H 10/29/16 23:56: Glucometer 144H 10/30/16 06:12: Glucometer 138H 10/30/16 07:45: White Blood Count 9.5, Red Blood Count 4.61, Hemoglobin 13.5, Hematocrit 42, Mean Corpuscular Volume 92, Mean Corpuscular Hemoglobin 29, Mean Corpuscular Hemoglobin Concent 32, Red Cell Distribution Width 13.8, Platelet Count 118L, Mean Platelet Volume 11.1H, Sodium Level 138, Potassium Level 4.0, Chloride Level 100, Carbon Dioxide Level 28, Anion Gap 10, Blood Urea Nitrogen 17, Creatinine 0.92, Estimat Glomerular Filtration Rate > 60, BUN/Creatinine Ratio 18, Glucose Level 137H, Calcium Level 8.9, Magnesium Level 1.6L, Vancomycin Level Trough 19.3, Phenytoin (Dilantin) Level 25.1*H 10/30/16 10:55: Glucometer 291H 10/30/16 15:50: Glucometer 214H 10/30/16 20:30: Glucometer 114H 10/31/16 04:07: White Blood Count 8.9, Red Blood Count 3.88L, Hemoglobin 11.5L, Hematocrit 35L, Mean Corpuscular Volume 91, Mean Corpuscular Hemoglobin 30, Mean Corpuscular Hemoglobin Concent 33, Red Cell Distribution Width 13.8, Platelet Count 116L, Mean Platelet Volume 11.2H, Neutrophils (%) (Auto) 68, Lymphocytes (%) (Auto) 15 , Monocytes (%) (Auto) 13H, Eosinophils (%) (Auto) 4, Basophils (%) (Auto) 0, Neutrophils # (Auto) 6.1, Lymphocytes # (Auto) 1.3, Monocytes # (Auto) 1.2H, Eosinophils # (Auto) 0.3, Basophils # (Auto) 0.0, Sodium Level 136, Potassium Level 3.8, Chloride Level 102, Carbon Dioxide Level 20L, Anion Gap 14, Blood Urea Nitrogen 31H, Creatinine 1.37H, Estimat Glomerular Filtration Rate 50, BUN/ Creatinine Ratio 23, Glucose Level 139H, Calcium Level 8.5, Magnesium Level 2.1 , Total Bilirubin 0.7, Aspartate Amino Transf (AST/SGOT) 25, Alanine Aminotransferase (ALT/SGPT) 18, Alkaline Phosphatase 75, Total Protein 5.9L, Albumin 3.3, Phenytoin (Dilantin) Level 17.7 Microbiology 10/28/16 MRSA Screen - Final, Complete MRSA not isolated Laboratory Tests 10/28/16 04:55 10/29/16 04:30 10/30/16 07:45 10/31/16 04:07 Pending Labs Microbiology Date/Time Source Procedure Growth Status 10/28/16 07:52 Nasal MRSA Screen - Final MRSA not isolated Complete Laboratory Tests 10/28/16 04:55: White Blood Count 13.9, Red Blood Count 4.24, Hemoglobin 12.6, Hematocrit 39, Mean Corpuscular Volume 93, Mean Corpuscular Hemoglobin 30, Mean Corpuscular Hemoglobin Concent 32, Red Cell Distribution Width 13.8, Platelet Count 171, Mean Platelet Volume 10.9, Neutrophils (%) (Auto) 80, Lymphocytes (%) (Auto) 13 , Monocytes (%) (Auto) 6, Eosinophils (%) (Auto) 1, Basophils (%) (Auto) 1, Neutrophils # (Auto) 11.2, Lymphocytes # (Auto) 1.8, Monocytes # (Auto) 0.8, Eosinophils # (Auto) 0.1, Basophils # (Auto) 0.1, Prothrombin Time 13.6, INR Comment 1.0, Activated Partial Thromboplast Time 34, Sodium Level 137, Potassium Level 4.5, Chloride Level 103, Carbon Dioxide Level 15, Anion Gap 19, Blood Urea Nitrogen 21, Creatinine 1.32, Estimat Glomerular Filtration Rate 52, BUN/Creatinine Ratio 16, Glucose Level 242, Calcium Level 9.3, Magnesium Level 2.0, Total Bilirubin 0.6, Aspartate Amino Transf (AST/SGOT) 22, Alanine Aminotransferase (ALT/SGPT) 24, Alkaline Phosphatase 83, Total Creatine Kinase 63, Creatine Kinase MB 2.3, Troponin I < 0.30, Total Protein 7.4, Albumin 4.1, TSH [place] Testing 2.08, Serum Alcohol < 10 10/28/16 09:06: Troponin I < 0.30 10/28/16 11:43: Glucometer 185 10/28/16 17:33: Glucometer 129 10/28/16 18:15: Urine Color YELLOW, Urine Clarity CLEAR, Urine pH 7, Urine Specific [place] 1.010, Urine Protein NEGATIVE, Urine Glucose (UA) NEGATIVE, Urine Ketones NEGATIVE, Urine Nitrite NEGATIVE, Urine Bilirubin NEGATIVE, Urine Urobilinogen NORMAL, Urine Leukocyte Esterase NEGATIVE, Urine RBC (Auto) 1+, Urine RBC NONE, Urine WBC NONE, Urine Squamous Epithelial Cells RARE, Urine Crystals NONE, Urine Bacteria NONE, Urine Casts NONE, Urine Mucus NEGATIVE, Urine Culture Indicated NO 10/28/16 23:39: Glucometer 162 10/29/16 04:30: White Blood Count 9.6, Red Blood Count 4.21, Hemoglobin 12.5, Hematocrit 39, Mean Corpuscular Volume 92, Mean Corpuscular Hemoglobin 30, Mean Corpuscular Hemoglobin Concent 32, Red Cell Distribution Width 14.0, Platelet Count 117, Mean Platelet Volume 11.1, Neutrophils (%) (Auto) 74, Lymphocytes (%) (Auto) 14 , Monocytes (%) (Auto) 11, Eosinophils (%) (Auto) 1, Basophils (%) (Auto) 1, Neutrophils # (Auto) 7.1, Lymphocytes # (Auto) 1.3, Monocytes # (Auto) 1.1, Eosinophils # (Auto) 0.1, Basophils # (Auto) 0.1, Sodium Level 137, Potassium Level 4.1, Chloride Level 102, Carbon Dioxide Level 23, Anion Gap 12, Blood Urea Nitrogen 15, Creatinine 1.09, Estimat Glomerular Filtration Rate > 60, BUN/ Creatinine Ratio 14, Glucose Level 169, Calcium Level 8.8, Total Bilirubin 1.1, Aspartate Amino Transf (AST/SGOT) 23, Alanine Aminotransferase (ALT/SGPT) 20, Alkaline Phosphatase 78, Total Protein 6.5, Albumin 3.6, Phenytoin (Dilantin) Level 26.5 10/29/16 04:50: Blood Gas Puncture Site L RAD, Blood Gas Patient Temperature 98.9, Arterial Blood pH 7.43, Arterial Blood Partial Pressure CO2 40, Arterial Blood Partial Pressure O2 103, Arterial Blood HCO3 27, Arterial Blood Total CO2 27.7, Arterial Blood Oxygen Saturation 99, Arterial Blood Base Excess 2.6, Jay Test YES-POS, Blood Gas Ventilator Setting NO, Blood Gas Inspired Oxygen RA 10/29/16 12:03: Glucometer 147 10/29/16 17:30: Glucometer 115 10/29/16 23:56: Glucometer 144 10/30/16 06:12: Glucometer 138 10/30/16 07:45: White Blood Count 9.5, Red Blood Count 4.61, Hemoglobin 13.5, Hematocrit 42, Mean Corpuscular Volume 92, Mean Corpuscular Hemoglobin 29, Mean Corpuscular Hemoglobin Concent 32, Red Cell Distribution Width 13.8, Platelet Count 118, Mean Platelet Volume 11.1, Sodium Level 138, Potassium Level 4.0, Chloride Level 100, Carbon Dioxide Level 28, Anion Gap 10, Blood Urea Nitrogen 17, Creatinine 0.92, Estimat Glomerular Filtration Rate > 60, BUN/Creatinine Ratio 18, Glucose Level 137, Calcium Level 8.9, Magnesium Level 1.6, Vancomycin Level Trough 19.3, Phenytoin (Dilantin) Level 25.1 10/30/16 10:55: Glucometer 291 10/30/16 15:50: Glucometer 214 10/30/16 20:30: Glucometer 114 10/31/16 04:07: White Blood Count 8.9, Red Blood Count 3.88, Hemoglobin 11.5, Hematocrit 35, Mean Corpuscular Volume 91, Mean Corpuscular Hemoglobin 30, Mean Corpuscular Hemoglobin Concent 33, Red Cell Distribution Width 13.8, Platelet Count 116, Mean Platelet Volume 11.2, Neutrophils (%) (Auto) 68, Lymphocytes (%) (Auto) 15 , Monocytes (%) (Auto) 13, Eosinophils (%) (Auto) 4, Basophils (%) (Auto) 0, Neutrophils # (Auto) 6.1, Lymphocytes # (Auto) 1.3, Monocytes # (Auto) 1.2, Eosinophils # (Auto) 0.3, Basophils # (Auto) 0.0, Sodium Level 136, Potassium Level 3.8, Chloride Level 102, Carbon Dioxide Level 20, Anion Gap 14, Blood Urea Nitrogen 31, Creatinine 1.37, Estimat Glomerular Filtration Rate 50, BUN/ Creatinine Ratio 23, Glucose Level 139, Calcium Level 8.5, Magnesium Level 2.1, Total Bilirubin 0.7, Aspartate Amino Transf (AST/SGOT) 25, Alanine Aminotransferase (ALT/SGPT) 18, Alkaline Phosphatase 75, Total Protein 5.9, Albumin 3.3, Phenytoin (Dilantin) Level 17.7 Radiology Reviewed venous Doppler arm shows superficial thrombophlebitis from upper arm to wrist. Head CT scan no evidence of acute intracranial abnormality. Chest x-ray cardiomegaly Discharge Home Medications: Active Scripts Active Bactrim Ds Tablet (Sulfamethoxazole/Trimethoprim) 1 Each Tablet 1 Each PO BID Eliquis (Apixaban) 5 Mg Tablet 10 Mg PO BID 2 TABLETS TWICE DAILY X 7 DAYS, THEN TAKE 1 PILL TWICE A DAY Acetaminophen-Cod #3 Tablet (Acetaminophen with Codeine) 1 Each Tablet 1 Each PO 3 TIMES A DAY 10 Days Dilantin (Phenytoin Sodium Extended) 100 Mg Capsule 100 Mg PO 4 TIMES DAILY 30 Days Reported Aspirin EC (Aspirin) 81 Mg Tablet.dr 81 Mg PO DAILY Bumetanide 2 Mg Tablet 2 Mg PO BID PRN LAST FILLED #60 04-15-16 Metoprolol Tartrate 50 Mg Tablet 50 Mg PO BID Nitrostat (Nitroglycerin) 0.4 Mg Tab.subl 0.4 Mg SL UD PRN Isosorbide Mononitrate ER (Isosorbide Mononitrate) 60 Mg Tab 60 Mg PO DAILY Glipizide 5 Mg Tablet 5 Mg PO DAILY Losartan Potassium 50 Mg Tablet 50 Mg PO 1200 Amlodipine Besylate 10 Mg Tablet 10 Mg PO DAILY Atorvastatin Calcium 80 Mg Tablet 80 Mg PO HS Instructions to patient/family Please see electronic discharge instructions given to patient. Clinical Quality Measures DVT/VTE Risk/Contraindication: Risk Factor Score Per Nursin RFS Level Per Nursing on Admit: 4+=Very High DALIA LAWLER DO Nov 04, 2016 07:42
== END 2016-10-31 11:30 | disposition home or self-care (01) | DRG 101 ==
LOC: EDUNIT# 04:47 → ER 04:49 → UNDOADMOB 06:30 → ICU 06:30 → OBSVTOIN 13:20 → INTOOBSV 13:20 → OBSVTOIN 10-29 13:23 → ICU 10-30 00:11 → UNDODISIN 10-31 11:30
PROVIDERS: ADMIT Family Medicine; ATTEND Family Medicine
DX: G40.909 Epilepsy, unspecified, not intractable, without status epilepticus (principal); I13.0 Hypertensive heart and chronic kidney disease with heart failure and stage 1 through stage 4 chronic kidney disease, or unspecified chronic kidney disease; I50.32 Chronic diastolic (congestive) heart failure; N18.9 Chronic kidney disease, unspecified; E11.9 Type 2 diabetes mellitus without complications; I25.10 Atherosclerotic heart disease of native coronary artery without angina pectoris; E78.00 Pure hypercholesterolemia, unspecified; M17.11 Unilateral primary osteoarthritis, right knee; I80.8 Phlebitis and thrombophlebitis of other sites; H91.90 Unspecified hearing loss, unspecified ear; I65.23 Occlusion and stenosis of bilateral carotid arteries; E78.5 Hyperlipidemia, unspecified; Z95.1 Presence of aortocoronary bypass graft; Z95.2 Presence of prosthetic heart valve; Z87.891 Personal history of nicotine dependence; Z79.84 Long term (current) use of oral hypoglycemic drugs; Z86.73 Personal history of transient ischemic attack (TIA), and cerebral infarction without residual deficits
CPT/HCPCS: 36415; 70450; 71010; 80048; 80053; 80185; 80202; 80320; 81000; 82550; 82553; 82805; 82962; 83735; 84443; 84484; 85025; 85027; 85610; 85730; 87081; 93005; 93041; 93306; 96361; 96374; 96376; G0378

== ENCOUNTER 2016-11-02 09:01 | Emergency (ER) | payer MEDICARE, OTHER ==
[~2016-11-02] VITALS: Ht 180.3 cm; Wt 90.7 kg
[~2016-11-02 09:01] MED LIST changes: +ACET1TAB43 PO; +BUME2TAB3 PO; +METO50TA2 PO; +TRAM50TA2 PO
[2016-11-02 10:50] LABS: CREATININE SERUM 1.32 MG/DL (0.60-1.30); POTASSIUM 5.1 MMOL/L (3.6-5.0)
[2016-11-02] MEDS ORDERED: SULF1TAB35 PO (11:14)
[2016-11-02] MEDS ORDERED: APIX5TAB PO (11:14)
--- NOTE | 2016-11-02 11:14 | ED Upper Extremity ---
General Chief Complaint: Upper Extremity Stated Complaint: INFECTION IN ARM Nursing Triage Note: c/o pain swelling to right arm. According to the patient, he believes he recieved an infection at the IV site from his last admission. Nursing Sepsis Screen: No Definite Risk Source: patient, old records, spouse History of Present Illness Time seen by provider: 09:20 Initial Comments PT ARRIVES VIA POV FROM HOME C/O PAIN, REDNESS AND SWELLING TO RIGHT FOREARM--WAS HOSPITALIZED 10/28/16 FOR SEIZURES AND THESE SYMPTOMS BEGAN WHILE IN HOSPITAL AT IV SITE--WAS TREATED WITH IV DILANTIN. 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 REPORTEDLY, PT HAS CHRONICALLY REFUSED ANY ANTICOAGULANTS PCP: DR. LAWLER CARDING DOUBLER: DR. HAIR Allergies and Home Medications Allergies Coded Allergies: Penicillins (Unverified Allergy, Unknown, 12/25/14) Home Medications Acetaminophen with Codeine 1 Each Tablet, 1 EACH PO 3 times a day for 10 Days, # 30 Prescribed by: DALIA LAWLER on 10/31/16 0717 Amlodipine Besylate 10 Mg Tablet, 10 MG PO DAILY, (Reported) Apixaban 5 Mg Tablet, 10 MG PO BID, #70 2 TABLETS TWICE DAILY X 7 DAYS, THEN TAKE 1 PILL TWICE A DAY Prescribed by: ALISHA JIMÉNEZ on 11/02/16 1114 Aspirin 81 Mg Tablet., 81 MG PO DAILY, (Reported) Atorvastatin Calcium 80 Mg Tablet, 80 MG PO HS, (Reported) Bumetanide 2 Mg Tablet, 2 MG PO BID PRN for SWELLING, (Reported) LAST FILLED #60 04-15-16 Glipizide 5 Mg Tablet, 5 MG PO DAILY, (Reported) Isosorbide Mononitrate 60 Mg Tab, 60 MG PO DAILY, (Reported) Losartan Potassium 50 Mg Tablet, 50 MG PO 1200, (Reported) Metoprolol Tartrate 50 Mg Tablet, 50 MG PO BID, (Reported) Nitroglycerin 0.4 Mg Tab.subl, 0.4 MG SL UD PRN for CHEST PAIN, (Reported) Phenytoin Sodium Extended 100 Mg Capsule, 100 MG PO 4 times daily for 30 Days Prescribed by: DALIA LAWLER on 10/31/16 0712 Sulfamethoxazole/Trimethoprim 1 Each Tablet, 1 EACH PO BID, #20 Prescribed by: ALISHA JIMÉNEZ on 11/02/16 1114 Constitutional: no symptoms reported Respiratory: no symptoms reported Cardiovascular: no symptoms reported Musculoskeletal: see HPI Skin: see HPI Psychiatric/Neurological: No Symptoms Reported Past Iqbmxfh-Kanfih-Fulxur Hx Patient Social History Alcohol Use: Occasionally Uses (HEAVY USE IN 30'S AND 40'S, NOW "OCCASIONAL" USE) Alcohol Beverage of Choice: [place] Recreational Drug Use: No Smoking Status: Former Smoker (QUIT AGE 28) Type Used: Cigarettes Recent Foreign Travel: No Contact w/Someone Who Travel: No Recent Infectious Disease Expo: No Recent Hopitalizations: Yes (10/28/16 FOR SEIZURES) Immunizations Up To Date Tetanus Booster (TDap): More than 5yrs PED Vaccines UTD: Yes Date of Pneumonia Vaccine: Apr 28, 2014 Date of Influenza Vaccine: Oct 24, 2014 Seasonal Allergies Seasonal Allergies: No Surgeries History of Surgeries: Yes (5 vessel CABG, short term dialysis; TRANSVENOUS MITRAL VALVE REPLACEMENT) Surgeries: Cardiac, CABG, Dialysis, Valve Replacement Respiratory History of Respiratory Disorde: Yes (CHF) Currently Using CPAP: No Currently Using BIPAP: No Cardiovascular History of Cardiac Disorders: Yes (CHF, TRANSVENOUS MITRAL VALVE REPLACEMENT; CABG-5 VESSEL) Cardiac Disorders: Chronic Edema/Swelling, Coronary Artery Disease, Heart Murmur, High Cholesterol, Hypertension, Valvular Heart Disease Neurological History of Neurological Disord: Yes (SEIZURE IN 2005 PRIOR TO CABG, THEN SEIZURES 10/28/16 AFTER STOPPING DILANTIN, AND WAS ALSO TAKING TRAMADOL) Neurological Disorders: Seizure Disorder, Stroke, TIA Reproductive System Hx Reproductive Disorders: No Sexually Transmitted Disease: No HIV/AIDS: No Genitourinary History of Genitourinary Disor: Yes (SHORT TERM DIALYSIS) Genitourinary Disorders: Renal Failure, Dialysis Gastrointestinal History of Gastrointestinal Di: Yes Gastrointestinal Disorders: Hemorrhoids, Polyps Musculoskeletal History of Musculoskeletal Dis: Yes (CHRONIC RIGHT KNEE PAIN ) Musculoskeletal Disorders: Arthritis Endocrine History of Endocrine Disorders: Yes Endocrine Disorders: Diabetes, Non-Insulin dep HEENT History of HEENT Disorders: Yes HEENT Disorders: Cataract Loss of Vision: Denies Hearing Impairment: Hard of Hearing Cancer History of Cancer: No Psychosocial History of Psychiatric Problem: No Integumentary History of Skin or Integumenta: No Blood Transfusions History of Blood Disorders: No Adverse Reaction to a Blood Tr: No Family Medical History Significant Family History: No Pertinent Family Hx Family Medial History: Cardiovascular disease 19 MOTHER Cervical cancer Diabetes mellitus 19 FATHER Physical Exam Vital Signs Vital Sign - Last 12Hours 11/02/16 11/02/16 09:20 12:13 Temp 97.5 Pulse 70 Resp 16 B/P (MAP) 156/75 Pulse Ox 98 O2 Delivery Room Air Capillary Refill : Less Than 3 Seconds General Appearance: WD/WN, no apparent distress Cardiovascular: regular rate, rhythm, systolic murmur (04/28) Respiratory: normal breath sounds, no respiratory distress, no accessory muscle use Elbow/Forearm: Right (ERYTHEMA, WARMTH, TENDERNESS AND SWELLING EXTENDING FROM DISTAL FOREARM/WRIST AREA UP TO ELBOW, WITH SOME CORDING NOTED. NO AREAS OF FLUCTUANCE. NO DRAINAGE. DISTAL MOTOR/SENSORY/VASCULAR INTACT. SWELLING INCLUDES RIGHT HAND WELL, BUT ERYTHMA, WARMTH AND TENDERNESS DO NOT INVOLVE THE HAND. ), pain, soft tissue tenderness, swelling Wrist: No bone tenderness, No limited ROM, Yes swelling Hand: Right, bone tenderness, limited ROM, swelling Neurologic/Tendon: normal sensation, normal motor functions, normal tendon functions Neurologic/Psychiatric: night auditor II-XII nml as tested, no motor/sensory deficits, alert, normal mood/affect, oriented x 3 Skin: normal color, warm/dry, other ( ABOVE) Progress/Results/Core Measures Results/Orders Lab Results My Orders Vital Signs/I&O Blood Pressure Mean: 102 Diagnostic Imaging Comments ULTRASOUND/VENOUS DOPPLER RIGHT ARM--EXTENSION OF SUPERFICIAL THROMBOPHLEBITIS, TO ADJACENT VESSEL EXTENDING TO MID HUMERUS/BASILIC VEIN. PER TECH REPORT AND RADIOLOGIST REPORT Reviewed: Reviewed by Me Departure Communication (Admissions) Progress Notes 1100--DR. HAIR HERE IN ER. DISCUSSED CASE AND HE IS SEEING PT. ADVISED TO START ON ELIQUIS AND ANTIBIOTIC, AND HE WILL FOLLOW UP IN CLINIC. Impression Impression: Primary Impression: Thrombophlebitis of right arm Additional Impression: Cellulitis of right arm Disposition: HOME, SELF-CARE Condition: Stable Departure-Patient Inst. Referrals: DALIA LAWLER DO (PCP/Family) Primary Care Physician SUZIE HAIR MD Patient Instructions: Cellulitis (Skin Infection), Adult (DC), Phlebitis (DC), Superficial Phlebitis Add. Discharge Instructions: MOIST HEAT TO AREA AT 20 MINUTE INTERVALS ELEVATE ARM MUCH POSSIBLE FOLLOW UP WITH DR. HAIR AND DR. LAWLER THIS WEEK FOR FURTHER CARE All discharge instructions reviewed with patient and/or family. Voiced understanding. Scripts Sulfamethoxazole/Trimethoprim (Bactrim Ds Tablet) 1 Each Tablet 1 EACH PO BID, #20 TAB Prov: ALISHA JIMÉNEZ DO 11/02/16 Apixaban (Eliquis) 5 Mg Tablet 10 MG PO BID, #70 TAB 2 TABLETS TWICE DAILY X 7 DAYS, THEN TAKE 1 PILL TWICE A DAY Prov: ALISHA JIMÉNEZ DO 11/02/16 ALISHA JIMÉNEZ DO Nov 02, 2016 11:14
[2016-11-02] MEDS ORDERED: CLINDAMYCIN 600 MG/4ML (CLEOCIN) VIAL IM ONE (11:15)
--- NOTE | 2016-11-02 11:22 | Diagnostic Imaging Report ---
EXAM: US VENOUS UPPER EXT RT INDICATION: Right arm pain. COMPARISON: Right upper extremity venous Doppler 10/29/2016. TECHNIQUE: Duplex, rodriguez-scale and color-flow imaging of the right upper extremity venous system was performed. FINDINGS: The right jugular, subclavian, axillary and brachial veins show no evidence of intraluminal thrombosis. The cephalic vein is patent. These vessels show normal compressibility, color flow and Doppler augmentation. There is thrombus within several superficial venous branches in the hand extending into the left basilic vein, increased since the prior exam. IMPRESSION: 1. Negative venous Doppler of the right upper extremity. 2. Interval progression of the superficial thrombophlebitis in the right arm. Dictated by: Dictated on workstation # [id number]
[2016-11-02 12:13] VITALS: BP 152/72
== END 2016-11-02 12:13 | disposition home or self-care (01) ==
LOC: EDUNIT# 09:01 → ER 09:02
DX: I80.8 Phlebitis and thrombophlebitis of other sites (principal); L03.113 Cellulitis of right upper limb; E11.9 Type 2 diabetes mellitus without complications; I11.0 Hypertensive heart disease with heart failure; I50.9 Heart failure, unspecified; G43.909 Migraine, unspecified, not intractable, without status migrainosus; I25.10 Atherosclerotic heart disease of native coronary artery without angina pectoris; E78.00 Pure hypercholesterolemia, unspecified; Z86.73 Personal history of transient ischemic attack (TIA), and cerebral infarction without residual deficits; Z95.5 Presence of coronary angioplasty implant and graft; Z95.0 Presence of cardiac pacemaker; Z95.2 Presence of prosthetic heart valve; Z87.891 Personal history of nicotine dependence; Z79.82 Long term (current) use of aspirin; Z79.4 Long term (current) use of insulin
CPT/HCPCS: 36415; 80048; 87040; 96372; 99284

== ENCOUNTER → 2017-05-27 | Outpatient (CLI) | payer MEDICARE, OTHER ==
[~2017-05-27] VITALS: Ht 182.9 cm; Wt 93.4 kg
[~2017-05-27] MED LIST changes: +APIX5TAB PO; +CATHETER FLUSH 10 ML SYR IV PRN; +METO100T12 PO; +METO50TA15 PO; -METO50TA2 PO; +REGADENOSON 0.4 MG/5 ML SYR (LEXISCAN) IV ONE; +SULF1TAB35 PO
[2017-05-27 09:40] VITALS: BP 141/74
[2017-05-27 09:46] VITALS: BP 167/59
--- NOTE | 2017-05-27 14:52 | STRESS TEST ---
DATE OF SERVICE: 05/27/2017 LEXISCAN MYOVIEW STRESS TEST REPORT REFERRING PHYSICIAN: Dr. Derek Malik. Baseline heart rate is 69, baseline blood pressure 185/76. Baseline EKG is sinus rhythm with no ischemic changes. In summary, the patient was injected with 10.85 mCi of technetium-99 Myoview and the resting images were obtained. Then, the patient received 0.4 mg of Lexiscan followed by 32.3 mCi of technetium-99 Myoview. Throughout the test, there were no EKG changes. The resting and stress images were reviewed and compared in the short axis, horizontal long axis and vertical long axis views. Review of the images showed good radiotracer uptake with diaphragmatic attenuation and mild ischemia involving the mid to apical inferior wall and inferolateral wall. SSS is 6, SDS 5, TID value 1.24. On the gated images, the left ventricle appeared to be in normal size with mild hypokinesia at the inferior wall. Calculated ejection fraction 49%. CONCLUSION: 1. The patient tolerated Lexiscan well. 2. Diaphragmatic attenuation with mild ischemia involving the mid to apical inferior wall and inferolateral wall. 3. Transient ischemic dilatation with TID value 1.24. 4. Normal left ventricular size with mild hypokinesia at the inferior wall. Calculated ejection fraction 49%. Job ID: [id number] DocumentID: [id number] Dictated Date: 05/27/2017 14:20:22 Boiler Tester Date: 05/27/2017 14:36:42 Dictated By: SUZIE HAIR MD
== END ==
LOC: CARD 07:57
PROVIDERS: ATTEND Internal Medicine Cardiovascular Disease
DX: I25.10 Atherosclerotic heart disease of native coronary artery without angina pectoris (principal)
CPT/HCPCS: 78452; 93017

== ENCOUNTER 2017-09-10 09:14 | Outpatient (RCR) | payer MEDICARE, OTHER ==
[~2017-09-10 09:14] MED LIST changes: -CATHETER FLUSH 10 ML SYR IV PRN; -REGADENOSON 0.4 MG/5 ML SYR (LEXISCAN) IV ONE
== END 2017-09-10 09:45 | disposition home or self-care (01) ==
PROVIDERS: ATTEND Orthopaedic Surgery
DX: Z47.1 Aftercare following joint replacement surgery (principal); Z96.651 Presence of right artificial knee joint

== ENCOUNTER 2017-11-20 10:15 | Outpatient (RCR) | payer MEDICARE, OTHER ==
[~2017-11-20 10:15] MED LIST changes: -AMLO10TA2 PO; +AMLO10TA6 PO; -LOSA50TA36 PO; +LOSA50TA7 PO
== END 2017-11-23 08:46 | disposition home or self-care (01) ==
PROVIDERS: ATTEND Orthopaedic Surgery
DX: Z47.1 Aftercare following joint replacement surgery (principal); Z96.652 Presence of left artificial knee joint

== ENCOUNTER 2017-12-11 10:19 | Outpatient (RCR) | payer MEDICARE, OTHER | END 2017-12-25 14:07 | disposition home or self-care (01) | PROVIDERS: ATTEND Orthopaedic Surgery | DX: Z47.1 Aftercare following joint replacement surgery (principal); Z96.652 Presence of left artificial knee joint ==

== ENCOUNTER → 2018-06-08 | Outpatient (CLI) | payer MEDICARE, OTHER ==
[~2018-06-08] MED LIST changes: -AMLO10TA6 PO; +AMLO10TA7 PO; +LOSA50TA63 PO; -LOSA50TA7 PO
== END ==
LOC: CARD 11:20
PROVIDERS: ATTEND Internal Medicine Cardiovascular Disease
DX: I08.0 Rheumatic disorders of both mitral and aortic valves (principal); Z86.79 Personal history of other diseases of the circulatory system; Z98.890 Other specified postprocedural states
CPT/HCPCS: 93306

== ENCOUNTER → 2018-12-14 | Outpatient (CLI) | payer MEDICARE, OTHER ==
[~2018-12-14] MED LIST changes: -BUME1TAB4 PO; +BUME1TAB8 PO; -BUME2TAB3 PO; +BUME2TAB7 PO
== END ==
LOC: LAB 10:24
PROVIDERS: ATTEND Family Medicine
DX: E87.5 Hyperkalemia (principal)
CPT/HCPCS: 36415; 84132

== ENCOUNTER → 2019-03-23 | Outpatient (CLI) | payer MEDICARE, OTHER ==
[~2019-03-23] MED LIST changes: -TRAM50TA2 PO; +TRM50T PO
[2019-03-23 09:57] LABS: BASOPHILS # (AUTO) 0.1 10^3/uL (0.0-0.1); BASOPHILS % (AUTO) 1 % (0-10); EOSINOPHILS # (AUTO) 0.3 10^3/uL (0.0-0.3); EOSINOPHILS % (AUTO) 3 % (0-10); HEMATOCRIT 39 % (40-54); HEMOGLOBIN 12.5 G/DL (13.3-17.7); LYMPHOCYTES # (AUTO) 1.4 X 10^3 (1.0-4.0); LYMPHOCYTES % (AUTO) 13 % (12-44); MEAN CORPUSCULAR HEMOGLOBIN 30 PG (25-34); MEAN CORPUSCULAR HGB CONC 32 G/DL (32-36); MEAN CORPUSCULAR VOLUME 94 FL (80-99); MEAN PLATELET VOLUME 9.4 FL (7.4-10.4); MONOCYTES % (AUTO) 10 % (0-12); NEUTROPHILS % (AUTO) 74 % (42-75); PLATELET COUNT 246 10^3/uL (130-400); RED CELL DISTRIBUTION WIDTH 13.6 % (10.0-14.5); WHITE BLOOD COUNT 10.9 10^3/uL (4.3-11.0)
--- NOTE | 2019-03-23 09:57 | Diagnostic Imaging Report ---
INDICATION: Pain and cough. Comparison is made with prior examination from 10/28/16. FINDINGS: The heart size is normal. There has been previous median sternotomy. There is no pleural effusion, pneumothorax or pneumonia. Mediastinum is unremarkable. IMPRESSION: No acute cardiopulmonary abnormality. Dictated by: Dictated on workstation # [id number]
== END ==
LOC: RAD 09:29
PROVIDERS: ATTEND Family Medicine
DX: R05 Cough (principal); R06.02 Shortness of breath
CPT/HCPCS: 36415; 71046; 85025

== ENCOUNTER → 2020-11-14 | Outpatient (CLI) | payer MEDICARE, OTHER ==
[~2020-11-14] MED LIST changes: +AMLO-251 PO; -AMLO10TA7 PO; +ASPI-1238 PO; -ASPI-983 PO; +ISOS60TA63 PO; -SULF1TAB35 PO; +SULF1TAB38 PO
[2020-11-14 10:13] LABS: ALBUMIN 3.7 GM/DL (3.2-4.5); BILIRUBIN,TOTAL 0.4 MG/DL (0.1-1.0); CALCIUM 8.9 MG/DL (8.5-10.1); CREATININE SERUM 1.17 MG/DL (0.60-1.30); POTASSIUM 5.2 MMOL/L (3.6-5.0); TOTAL PROTEIN 6.9 GM/DL (6.4-8.2)
== END ==
LOC: LAB 09:33
PROVIDERS: ATTEND Internal Medicine Cardiovascular Disease
DX: E78.2 Mixed hyperlipidemia (principal)
CPT/HCPCS: 36415; 80053; 80061

== ENCOUNTER → 2020-12-24 | Outpatient (CLI) | payer MEDICARE, OTHER | LOC: CARD 08:10 | PROVIDERS: ATTEND Internal Medicine Cardiovascular Disease | DX: I11.9 Hypertensive heart disease without heart failure (principal); I34.2 Nonrheumatic mitral (valve) stenosis; Z95.0 Presence of cardiac pacemaker | CPT/HCPCS: 93306 ==

== ENCOUNTER → 2022-05-19 | Outpatient (CLI) | payer MEDICARE, OTHER ==
[~2022-05-19] MED LIST changes: +ACET-11 PO; -ACET1TAB43 PO
== END ==
LOC: CARD 08:59
PROVIDERS: ATTEND Physician Assistant
DX: I05.0 Rheumatic mitral stenosis (principal); I10 Essential (primary) hypertension; I25.10 Atherosclerotic heart disease of native coronary artery without angina pectoris; Z95.2 Presence of prosthetic heart valve
CPT/HCPCS: 93306

== ENCOUNTER 2022-09-10 07:31 | Emergency (ER) | payer MEDICARE, OTHER ==
[~2022-09-10] VITALS: Ht 182 cm; Wt 91.0 kg
--- NOTE | 2022-09-10 07:37 | ED General ---
General Chief Complaint: Chest Pain Stated Complaint: CHEST PAINS | LT ARM NUMBNESS History of Present Illness Date Seen by Provider: Sep 10, 2022 Time Seen by Provider: 07:37 Initial Comments 84-year-old male with left arm numbness. He reports that he had it for quite some time however around midnight seems like it is just more numb than normal. The he has been up urinating a lot throughout the night. He typically maybe gets up once or twice throughout the night but last night he was probably up 8 t imes. He does not have any chest pain per se. No other focal weakness. Breath nausea vomiting fevers or chills Allergies and Home Medications Allergies Coded Allergies: Penicillins (Unverified Allergy, Unknown, 12/25/14) Patient Home Medication List Home Medication List Reviewed: Yes Acetaminophen with Codeine (Acetaminophen-Cod #3 Tablet) 1 Each Tablet, 1 EACH PO 3 times a day Prescribed by: DALIA LAWLER on 10/31/16 0717 Amlodipine Besylate (Amlodipine Besylate) 10 Mg Tablet, 10 MG PO DAILY, (Reported) Entered as Reported by: JANICE SILVA on 11/22/14 1322 Apixaban (Eliquis) 5 Mg Tablet, 10 MG PO BID Prescribed by: ALISHA JIMÉNEZ on 11/02/16 1114 Aspirin (Aspirin EC) 81 Mg Tablet.dr, 81 MG PO DAILY, (Reported) Entered as Reported by: MICHAEL JOAQUIN on 10/28/16 1035 Atorvastatin Calcium (Atorvastatin Calcium) 80 Mg Tablet, 80 MG PO HS, (Reported) Entered as Reported by: JANICE SILVA on 11/22/14 1318 Bumetanide (Bumetanide) 2 Mg Tablet, 2 MG PO BID PRN for SWELLING, (Reported) Entered as Reported by: MICHAEL JOAQUIN on 10/28/16 1022 Glipizide (Glipizide) 5 Mg Tablet, 5 MG PO DAILY, (Reported) Entered as Reported by: JANICE SILVA on 12/25/14 1544 Isosorbide Mononitrate (Isosorbide Mononitrate ER) 60 Mg Tab, 60 MG PO DAILY, (Reported) Entered as Reported by: MARICRUZ PATTERSON on 05/09/15 0932 Losartan Potassium (Losartan Potassium) 50 Mg Tablet, 50 MG PO 1200, (Reported) Entered as Reported by: JANICE SILVA on 12/25/14 1544 Metoprolol Tartrate (Metoprolol Tartrate) 50 Mg Tablet, 50 MG PO BID, (Reported) Entered as Reported by: MICHAEL JOAQUIN on 10/28/16 1021 Nitroglycerin (Nitrostat) 0.4 Mg Tab.subl, 0.4 MG SL UD PRN for CHEST PAIN, (Reported) Entered as Reported by: MARICRUZ PATTERSON on 05/09/15 0932 Phenytoin Sodium Extended (Dilantin) 100 Mg Capsule, 100 MG PO 4 times daily Prescribed by: DALIA LAWLER on 10/31/16 0712 Sulfamethoxazole/Trimethoprim (Bactrim Ds Tablet) 1 Each Tablet, 1 EACH PO BID Prescribed by: ALISHA JIMÉNEZ on 11/02/16 1114 Review of Systems Review of Systems Constitutional: see HPI; No chills, No fever EENTM: no symptoms reported Respiratory: no symptoms reported Cardiovascular: no symptoms reported Gastrointestinal: no symptoms reported Psychiatric/Neurological: Numbness Past Ghztlmq-Mbvlls-Ozyfsu Hx Immunizations Up To Date Tetanus Booster (TDap): More than 5yrs PED Vaccines UTD: Yes Seasonal Allergies Seasonal Allergies: No Past Medical History Surgeries: Yes (5 vessel CABG, short term dialysis; TRANSVENOUS MITRAL VALVE RE PLACEMENT) Cardiac, CABG, Dialysis, Valve Replacement Respiratory: Yes (CHF) Currently Using CPAP: No Currently Using BIPAP: No Cardiac: Yes (CHF, TRANSVENOUS MITRAL VALVE REPLACEMENT; CABG-5 VESSEL) Chronic Edema/Swelling, Coronary Artery Disease, Heart Murmur, High Cholesterol, Hypertension, Valvular Heart Disease Neurological: Yes Seizure Disorder, Stroke, TIA Reproductive Disorders: No Sexually Transmitted Disease: No HIV/AIDS: No Genitourinary: Yes (SHORT TERM DIALYSIS) Renal Failure, Dialysis Gastrointestinal: Yes Hemorrhoids, Polyps Musculoskeletal: Yes (CHRONIC RIGHT KNEE PAIN ) Arthritis Endocrine: Yes Diabetes, Non-Insulin dep HEENT: Yes Cataract Loss of Vision: Denies Hearing Impairment: Hard of Hearing Cancer: No Psychosocial: No Integumentary: No Blood Disorders: No Adverse Reaction/Blood Tranf: No Family Medical History Cardiovascular disease 19 MOTHER Cervical cancer Diabetes mellitus 19 FATHER No Pertinent Family Hx Physical Exam Vital Signs Vital Signs - First Documented 09/10/22 07:31 Pulse 87 Resp 16 B/P (MAP) 192/102 (132) Pulse Ox 97 Capillary Refill : Height, Weight, BMI Height: 6'0.00" Weight: 206lbs. 0.0oz. 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 Norm as Tested Skin: Normal Color, Warm/Dry Progress/Results/Core Measures Suspected Sepsis SIRS Temperature: Pulse: Respiratory Rate: Laboratory Tests 09/10/22 07:35: White Blood Count 10.0 Blood Pressure / Mean: Laboratory Tests 09/10/22 07:35: Creatinine 1.06, INR Comment 1.1, Platelet Count 143, Total Bilirubin 0.6 Results/Orders Lab Results Laboratory Tests Test 09/10/22 07:35 09/10/22 08:45 Range/Units White Blood Count 10.0 4.3-11.0 10^3/uL Red Blood Count 4.18 L 4.30-5.52 10^6/uL Hemoglobin 12.5 L 13.3-17.7 g/dL Hematocrit 40 40-54 % Mean Corpuscular Volume 95 80-99 fL Mean Corpuscular Hemoglobin 30 25-34 pg Mean Corpuscular Hemoglobin Concent 32 32-36 g/dL Red Cell Distribution Width 13.3 10.0-14.5 % Platelet Count 143 130-400 10^3/uL Mean Platelet Volume 10.8 9.0-12.2 fL Immature Granulocyte % (Auto) 0 % Neutrophils (%) (Auto) 74 42-75 % Lymphocytes (%) (Auto) 16 12-44 % Monocytes (%) (Auto) 8 0-12 % Eosinophils (%) (Auto) 2 0-10 % Basophils (%) (Auto) 1 0-10 % Neutrophils # (Auto) 7.4 1.8-7.8 10^3/uL Lymphocytes # (Auto) 1.6 1.0-4.0 10^3/uL Monocytes # (Auto) 0.8 0.0-1.0 10^3/uL Eosinophils # (Auto) 0.2 0.0-0.3 10^3/uL Basophils # (Auto) 0.1 0.0-0.1 10^3/uL Immature Granulocyte # (Auto) 0.0 0.0-0.1 10^3/uL Prothrombin Time 13.9 12.2-14.7 SEC INR Comment 1.1 0.8-1.4 Activated Partial Thromboplast Time 43 H 24-35 SEC Sodium Level 138 135-145 MMOL/L Potassium Level 5.2 H 3.6-5.0 MMOL/L Chloride Level 104 98-107 MMOL/L Carbon Dioxide Level 26 21-32 MMOL/L Anion Gap 8 5-14 MMOL/L Blood Urea Nitrogen 22 H 7-18 MG/DL Creatinine 1.06 0.60-1.30 MG/DL Estimat Glomerular Filtration Rate 68 BUN/Creatinine Ratio 21 Glucose Level 180 H 70-105 MG/DL Calcium Level 9.0 8.5-10.1 MG/DL Corrected Calcium 9.1 8.5-10.1 MG/DL Magnesium Level 1.9 1.6-2.4 MG/DL Total Bilirubin 0.6 0.1-1.0 MG/DL Aspartate Amino Transf (AST/SGOT) 24 5-34 U/L Alanine Aminotransferase (ALT/SGPT) 28 0-55 U/L Alkaline Phosphatase 117 40-136 U/L Troponin I < 0.028 <0.028 NG/ML Total Protein 6.9 6.4-8.2 GM/DL Albumin 3.9 3.2-4.5 GM/DL Urine Color YELLOW Urine Clarity CLEAR Urine pH 6.0 5-9 Urine Specific [place] 1.020 1.016-1.022 Urine Protein 2+ H NEGATIVE Urine Glucose (UA) NEGATIVE NEGATIVE Urine Ketones NEGATIVE NEGATIVE Urine Nitrite NEGATIVE NEGATIVE Urine Bilirubin NEGATIVE NEGATIVE Urine Urobilinogen 0.2 < = 1.0 MG/DL Urine Leukocyte Esterase NEGATIVE NEGATIVE Urine RBC (Auto) TRACE-I H NEGATIVE Urine RBC 0-2 /HPF Urine WBC RARE /HPF Urine Crystals PRESENT H /LPF Urine Amorphous Sediment FEW SHAHRIAR URATES H /LPF Urine Bacteria NEGATIVE /HPF Urine Casts PRESENT /LPF Urine Hyaline Casts 0-2 H /LPF Urine Mucus NEGATIVE /LPF Urine Culture Indicated NO My Orders Orders - DELGADO,LARS L DO Cbc With Automated Diff (09/10/22 07:37) Comprehensive Metabolic Panel (09/10/22 07:37) Magnesium (7/19/23 07:37) Protime With Inr (09/10/22 07:37) Partial Thromboplastin Time (09/10/22 07:37) Troponin I [place] (09/10/22 07:37) Ekg Tracing (09/10/22 07:37) Monitor-Rhythm Ecg Trace Only (09/10/22 07:37) Ct Head Wo-R/O Stroke (09/10/22 07:37) Ua Culture If Indicated (09/10/22 07:43) Vital Signs/I&O 09/10/22 09/10/22 07:31 09:49 Pulse 87 65 Resp 16 B/P (MAP) 192/102 (132) 161/85 Pulse Ox 97 97 Capillary Refill : Progress Note : Progress Note Diagnostic studies ordered reviewed and interpreted by me. Patient with no acute or concerning. Patient findings on labs he was ordered reviewed with final interpretation per radiology report that showed no acute findings. Patient's symptoms are consistent with some mild paresthesia that was just a little bit different than what he normally has but no other focal deficits and negative neuro exam. Patient actually is feeling a lot better thinks maybe he just slept on it wrong. He is stable and discharged home. He should follow-up with his primary care provider as ECG Initial ECG Impression Date: Sep 10, 2022 Initial ECG Impression Time: 07:40 Initial ECG Rate: 71 Initial ECG Rhythm: Normal Sinus Initial ECG Intervals: Normal Initial ECG Impression: 1st Degree AV Block Comment no acute changes Diagnostic Imaging Diagonstic Imaging: CT Plain Films/CT/US/NM/MRI: head Comments Date of Exam:09/10/22 CT HEAD WO-R/O STROKE PROCEDURE: CT head wo r/o stroke. TECHNIQUE: Multiple contiguous axial images were obtained through the brain without the use of intravenous contrast. Auto Exposure Controls were utilized during the CT exam to meet ALARA standards for radiation dose reduction. INDICATION: Left-sided numbness COMPARISON: 10/28/2016. FINDINGS: No intracranial hyperdense hemorrhage or space-occupying mass. No hydrocephalus or midline shift. Islas-white matter differentiation is well-preserved. Periventricular hypoattenuation is stable in appearance and most compatible with chronic microvascular ischemic change. Global atrophy is similar. Basilar cisterns are widely patent. Old lacunar infarct in the right caudate nucleus is noted. No hyperdense vessel sign. No acute calvarial abnormality. Paranasal sinuses and mastoid air cells are clear. IMPRESSION: 1. No intracranial hemorrhage or features of large territorial infarct. Reviewed: Reviewed by Me, Reviewed/Discussed Departure Impression Primary Impression: Arm paresthesia, left Disposition: 01 HOME, SELF-CARE Condition: Stable Departure-Patient Inst. Referrals: DALIA LAWLER DO (PCP/Family) Primary Care Physician Patient Instructions: Paresthesia (DC) Add. Discharge Instructions: Follow-up with your primary care provider as needed All discharge instructions reviewed with patient and/or family. Voiced u nderstanding. LARS DELGADO DO Sep 10, 2022 07:37
[2022-09-10 07:58] LABS: ALBUMIN 3.9 GM/DL (3.2-4.5); CHLORIDE 104 MMOL/L (98-107); POTASSIUM 5.2 MMOL/L (3.6-5.0); SODIUM 138 MMOL/L (135-145)
[2022-09-10 07:59] LABS: BASOPHILS # (AUTO) 0.1 10^3/uL (0.0-0.1); BASOPHILS % (AUTO) 1 % (0-10); EOSINOPHILS # (AUTO) 0.2 10^3/uL (0.0-0.3); EOSINOPHILS % (AUTO) 2 % (0-10); HEMATOCRIT 40 % (40-54); HEMOGLOBIN 12.5 g/dL (13.3-17.7); LYMPHOCYTES # (AUTO) 1.6 10^3/uL (1.0-4.0); LYMPHOCYTES % (AUTO) 16 % (12-44); MEAN CORPUSCULAR HEMOGLOBIN 30 pg (25-34); MEAN CORPUSCULAR HGB CONC 32 g/dL (32-36); MEAN CORPUSCULAR VOLUME 95 fL (80-99); MEAN PLATELET VOLUME 10.8 fL (9.0-12.2); MONOCYTES # (AUTO) 0.8 10^3/uL (0.0-1.0); MONOCYTES % (AUTO) 8 % (0-12); NEUTROPHILS # (AUTO) 7.4 10^3/uL (1.8-7.8); NEUTROPHILS % (AUTO) 74 % (42-75); PLATELET COUNT 143 10^3/uL (130-400)
[2022-09-10 08:01] LABS: GLUCOSE 180 MG/DL (70-105); TOTAL PROTEIN 6.9 GM/DL (6.4-8.2)
[2022-09-10 08:02] LABS: CARBON DIOXIDE 26 MMOL/L (21-32)
[2022-09-10 08:03] LABS: BILIRUBIN,TOTAL 0.6 MG/DL (0.1-1.0)
[2022-09-10 08:04] LABS: ALKALINE PHOSPHATASE 117 U/L (40-136); CREATININE SERUM 1.06 MG/DL (0.60-1.30); GFR ESTIMATED 68
[2022-09-10 08:06] LABS: BUN/CREATININE RATIO 21
[2022-09-10 08:07] LABS: ALANINE AMINOTRANSFERASE 28 U/L (0-55); MAGNESIUM 1.9 MG/DL (1.6-2.4)
--- NOTE | 2022-09-10 08:23 | Diagnostic Imaging Report ---
PROCEDURE: CT head wo r/o stroke. TECHNIQUE: Multiple contiguous axial images were obtained through the brain without the use of intravenous contrast. Auto Exposure Controls were utilized during the CT exam to meet ALARA standards for radiation dose reduction. INDICATION: Left-sided numbness COMPARISON: 10/28/2016. FINDINGS: No intracranial hyperdense hemorrhage or space-occupying mass. No hydrocephalus or midline shift. Islas-white matter differentiation is well-preserved. Periventricular hypoattenuation is stable in appearance and most compatible with chronic microvascular ischemic change. Global atrophy is similar. Basilar cisterns are widely patent. Old lacunar infarct in the right caudate nucleus is noted. No hyperdense vessel sign. No acute calvarial abnormality. Paranasal sinuses and mastoid air cells are clear. IMPRESSION: 1. No intracranial hemorrhage or features of large territorial infarct. Dictated by: Dictated on workstation # [id number]
[2022-09-10 08:24] LABS: INR 1.1 (0.8-1.4); PROTHROMBIN TIME PATIENT 13.9 SEC (12.2-14.7)
[2022-09-10 08:59] LABS: BILIRUBIN,URINE NEGATIVE (NEGATIVE); CLARITY,URINE CLEAR; COLOR,URINE YELLOW; GLUCOSE, URINE (UA) NEGATIVE (NEGATIVE); KETONES,URINE NEGATIVE (NEGATIVE); LEUKOCYTE ESTERASE ,URINE NEGATIVE (NEGATIVE); NITRITE,URINE NEGATIVE (NEGATIVE); PROTEIN,URINE 2+ (NEGATIVE)
[2022-09-10 09:17] LABS: AMORPHOUS SEDIMENT,UR FEW AMOR URATES /LPF; BACTERIA,URINE NEGATIVE /HPF; HYALINE CASTS, URINE 0-2 /LPF; RBC,URINE 0-2 /HPF; WBC,URINE RARE /HPF
[2022-09-10 09:49] VITALS: BP 161/85
== END 2022-09-10 09:49 | disposition home or self-care (01) ==
LOC: EDUNIT# 07:31 → ER 07:33
DX: R20.2 Paresthesia of skin (principal); N19 Unspecified kidney failure; Z99.2 Dependence on renal dialysis
CPT/HCPCS: 36415; 70450; 80053; 81000; 83735; 84484; 85025; 85610; 85730; 93005; 93041